=== PATIENT | male | born 1950 | race Caucasian/White ===

== ENCOUNTER 2017-07-29 09:44 | Observation (INO) | payer BC, OTHER ==
[~2017-07-29] VITALS: Ht 182.9 cm; Wt 89.0 kg
[~2017-07-29 09:44] MED LIST: ASPI81TA21 PO; CHOL100027 PO; FAMO-103 PO; FINA5TAB4 PO; L-ME1CAP3 PO; LISI-729 PO; ROPI0.5T15 PO; SIMV20TA5 PO; TRAM-10 PO; cyclobenzaprine PO
[2017-07-29] MEDS ORDERED: LIDOCAINE/EPINEPHRINE 1% 20 ML VIAL INFIL ONE (10:30)
--- NOTE | 2017-07-29 10:34 | DIAGNOSTIC IMAGING REPORT ---
CHEST ONE VIEW PORTABLE CLINICAL HISTORY: fall trauma COMPARISON STUDY: 05/15/2012 FINDINGS: The bones soft tissues and hemidiaphragms are normal. The cardiomediastinal silhouette is normal. The lungs are clear. The pulmonary vasculature is normal. IMPRESSION: Negative chest. The above report was generated using voice recognition software. It may contain grammatical, syntax or spelling errors. Electronically signed by: Zachary Eli M.D. 07/29/2017 10:33 AM Dictated Date/Time: 07/29/2017 10:33 AM
[2017-07-29 11:45] LABS: BASO % 0.4 %; BASO ABS # 0.05 K/uL (0-0.2); EOS % 0.6 %; EOS ABS # 0.08 K/uL (0-0.5); HEMATOCRIT 43.2 % (42-52); HEMOGLOBIN 15.1 g/dL (14.0-18.0); IG# 0.05 K/uL (0.00-0.02); LYMPH % 12.6 %; LYMPH ABS # 1.59 K/uL (1.2-3.4); MEAN CELL VOLUME 86.2 fL (80-100); MEAN CORPUSCULAR HEMOGLOBIN 30.1 pg (25-34); MEAN PLATELET VOLUME 10.6 fL (7.4-10.4); MONO % 6.6 %; MONO ABS # 0.84 K/uL (0.11-0.59); NEUT % 79.4 %; NEUT ABS # 10.03 K/uL (1.4-6.5); PLATELET COUNT 249 K/uL (130-400); RED CELL DISTRIBUTION WIDTH CV 13.2 % (11.5-14.5); RED CELL DISTRIBUTION WIDTH SD 41.5 fL (36.4-46.3); WHITE BLOOD COUNT 12.64 K/uL (4.8-10.8)
--- NOTE | 2017-07-29 11:45 | DIAGNOSTIC IMAGING REPORT ---
CERVICAL SPINE W/O CT DOSE: HISTORY: Trauma fall, head injury TECHNIQUE: Multiaxial CT images of the cervical spine were performed and reformatted in the sagittal and coronal plane without the use of contrast. A dose lowering technique was utilized adhering to the principles of ALARA. COMPARISON: None. FINDINGS: Findings consistent with fusion from C3 through C7. There has been a corpectomy at C3-C4 level. No evidence for a posttraumatic abnormality. No evidence for subluxation. Posterior elements appear intact. Prevertebral soft tissues are unremarkable. IMPRESSION: No fractures within the cervical spine. Degenerative and postoperative changes as noted The above report was generated using voice recognition software. It may contain grammatical, syntax or spelling errors. Electronically signed by: Zachary Eli M.D. 07/29/2017 11:44 AM Dictated Date/Time: 07/29/2017 11:42 AM
--- NOTE | 2017-07-29 11:46 | DIAGNOSTIC IMAGING REPORT ---
CT HEAD WITHOUT CONTRAST (CT) CLINICAL HISTORY: Head pain status post head trauma COMPARISON STUDY: No previous studies for comparison. TECHNIQUE: Axial CT of the brain is performed from the vertex to the skull base. IV contrast was not administered for this examination. A dose lowering technique was utilized adhering to the principles of ALARA. CT DOSE: 1163.49 mGy.cm FINDINGS: No intra or extra-axial mass lesions are visualized. There is no CT evidence of acute cortical infarction. There is no evidence of midline shift. There is no acute hemorrhage. No calvarial fractures are visualized. There are patchy white matter hypodensities likely on a small vessel basis. There is no evidence of pathologic ventricular dilatation. There is no evidence of acute sinusitis IMPRESSION: No acute intracranial findings Electronically signed by: Gallo Colon M.D. 07/29/2017 11:44 AM Dictated Date/Time: 07/29/2017 11:44 AM
[2017-07-29] MEDS ORDERED: MoRPHine SULFATE 10 MG/ML CARP/VIAL IV STA (11:51)
[2017-07-29 12:17] LABS: ALBUMIN 3.9 gm/dl (3.4-5.0); CALCIUM 9.5 mg/dl (8.5-10.1); CREATININE 0.97 mg/dl (0.60-1.40); TOTAL PROTEIN 7.7 gm/dl (6.4-8.2)
[2017-07-29] MEDS ORDERED: BACITRACIN OINT 15 GM TUBE ONE (12:50)
[2017-07-29] MEDS ORDERED: SODIUM CHLORIDE 0.9% 1000ML 1,000 ML IV STA (13:21)
[2017-07-29] MEDS ORDERED: HYDROCODONE/ACETAMIN 5/325MG TAB PO STA (14:11)
[2017-07-29] MEDS ORDERED: CEFTRIAXONE SOD INJ 1 GM ADDVIAL IV STA (14:57)
--- NOTE | 2017-07-29 15:05 | EMERGENCY ROOM VISIT NOTE ---
ED Visit Note First contact with patient: 10:02 I have personally evaluated this patient examined her and reviewed the pertinent labs and data. I have discussed the case with Gilma Lopez, the physician observation assistant and agree with the plan. Please refer to the PA note. This patient comes in after suffering a mechanical fall. He does have diabetic neuropathy. He did hit his head we did a CAT scan of his head neck was unremarkable. he has several lacerations on his extremities and the largest on his right arm. These have been repaired by Gilma. He will check his tetanus status. There is concern about him being safe at home and we are going to try to get him into [facility]. On my exam, he is resting comfortably and appears to be at his normal neurologic baseline. His daughter is at the bedside and agrees with the plan.
--- NOTE | 2017-07-29 16:56 | EMERGENCY ROOM VISIT NOTE ---
History First contact with patient: 10:02 Chief Complaint: FALL Stated Complaint: LACERATION History of Present Illness The patient is a 67 year old male who presents to the Emergency Room via EMS with complaints of a fall which occurred just prior to arrival. The patient reports that he was showering by himself when he fell, landing onto the toilet, which then broke. He hit his head and sustained lacerations to the right arm and left leg as well as several other abrasions. The patient states that he has frequent falls. He reports a history of diabetes and diabetic neuropathy of both of his legs and states that the legs frequently give out, causing him to fall. He believes this is what happened today. He was slightly confused when he first fell, but then realized what happened. He walked outside because he was unable to call anyone and a neighbor found him sitting outside and called 911. The patient is currently living with his daughter. He is scheduled to move to a new assisted living facility which opens up September 30 of this year. The patient has chronic difficulty with speech due to a previous neck surgery. His daughter states that he is at his baseline. The patient denies chest pain, shortness of breath, headache, abdominal pain, nausea/ vomiting, diarrhea, constipation or urinary symptoms. He denies recent illness or fever/chills. The patient recently moved here and was set up with the local [place] clinic. His daughter believes that his tetanus is up-to-date. Review of Systems A complete 10 point review of systems was reviewed with the patient with pertinent positives and negatives as per history of present illness. All else were negative. Past Medical/Surgical History Medical Problems: (1) Diabetes mellitus (2) Diabetic neuropathy (3) HLD (hyperlipidemia) (4) HTN (hypertension) (5) PAD (peripheral artery disease) Surgical Problems: (1) H/O cervical spine surgery (2) right achilles tendon surgery Social History Smoking Status: Never Smoker Marital Status: single Housing Status: lives with family Occupation Status: disabled Current/Historical Medications Scheduled Ascorbic Acid (Ascorbic Acid), 1,000 MG PO DAILY Aspirin Enteric Coated (Ecotrin Or Generic), 81 MG PO DAILY B-Complex Vitamins (Vitamin B Complex), 1 TAB PO DAILY Calcium Polycarbophil (Calcium Polycarbophil), 1 TAB PO DAILY Celecoxib (CeleBREX), 1 CAP PO DAILY Cholecalciferol (D 5000), 1 CAP PO DAILY Cinnamon (Cinnamon), 1,000 MG PO BID Coenzyme Q10 (Ubidecarenone) (Co Q10), 100 MG PO DAILY Docusate Sodium (Docusate Sodium), 1 CAP PO DAILY Famotidine (Pepcid), 1 TAB PO HS Ferrous Sulfate (Kp Ferrous Sulfate), 1 TAB PO DAILY Fish Oil ([place]-3), 1 CAP PO DAILY Fluticasone Propionate (Nasal) (Flonase Allergy Relief), 2 SPRAYS NA DAILY Gabapentin (Neurontin), 100 MG PO BID Glucosamine Sulfate (Glucosamine), 1,000 MG PO BID Lubiprostone (Amitiza), 1 CAP PO BID Magnesium Oxide (Magnesium Oxide), 1 CAP PO DAILY Melatonin (Melatonin Maximum Strengt), Unknown Dose PO HS Mometasone Furoate (Nasal) (Mometasone Furoate), 1 SPRAY NA DAILY Multivitamin (Multivitamin), 1 TAB PO DAILY Ocuvite Preservision (Ocuvite Preservision), 2 TAB PO DAILY Rosuvastatin Calcium (Crestor), 1 TAB PO HS Sitagliptin Phosphate (Januvia), 100 MG PO DAILY Solifenacin (Vesicare), 5 MG PO DAILY Vitamins W/ Lipotropics (Lipoflavonoid), 1 TAB PO DAILY [tumeric], 500 MG PO DAILY Physical Exam Vital Signs Date Time Temp Pulse Resp B/P (MAP) Pulse Ox O2 Delivery O2 Flow Rate FiO2 07/29/17 18:42 82 18 111/64 94 Room Air 07/29/17 16:09 80 18 110/66 97 Room Air 07/29/17 14:26 86 18 128/80 98 Room Air 07/29/17 13:18 89 18 127/89 99 Room Air 07/29/17 12:58 93 18 123/80 100 Room Air 07/29/17 09:55 36.3 90 18 130/87 100 Room Air Pain Rating (0-10): 8.0 Physical Exam VITALS: Vitals are noted on the nurse's note and reviewed by myself. Vital signs stable. GENERAL: This is a 67-year-old male, in no acute distress, well-developed well- nourished. SKIN: There is an 8 cm curved laceration to the lateral aspect of the right upper arm, proximal to the elbow. The wound is gaping with subcutaneous tissue exposed. There is mild active bleeding. There is a 7 cm curved laceration to the left lateral aspect of the calf, mild active bleeding. No foreign body seen in either wound. There is an abrasion to the left fourth digit. It appears that the superficial layer of skin has avulsed from the wound. There is no active bleeding. There are additional abrasions to the left first MCP and the right anterior ankle. HEAD: Normocephalic atraumatic. EARS: External auditory canals clear, tympanic membranes pearly dee without erythema or effusion bilaterally. No hemotympanum. EYES: Pupils equal round and reactive to light and accommodation. Extraocular movements intact. MOUTH: Mucous membranes slightly dry. NECK: Supple without nuchal rigidity. Cervical spine is nontender. HEART: Regular rate and rhythm without murmurs gallops or rubs. LUNGS: Clear to auscultation bilaterally without wheezes, rales or rhonchi. ABDOMEN: Positive bowel sounds x 4. Soft, nontender to palpation. MUSCULOSKELETAL: Strength 5/5 throughout. NEURO: Patient was alert and oriented to person place and time. Speech is slow , but answers all questions appropriately. No focal neurological deficits. Medical Decision & Procedures ER Provider Diagnostic Interpretation: CT HEAD WITHOUT CONTRAST (CT) FINDINGS: No intra or extra-axial mass lesions are visualized. There is no CT evidence of acute cortical infarction. There is no evidence of midline shift. There is no acute hemorrhage. No calvarial fractures are visualized. There are patchy white matter hypodensities likely on a small vessel basis. There is no evidence of pathologic ventricular dilatation. There is no evidence of acute sinusitis IMPRESSION: No acute intracranial findings CERVICAL SPINE W/O FINDINGS: Findings consistent with fusion from C3 through C7. There has been a corpectomy at C3-C4 level. No evidence for a posttraumatic abnormality. No evidence for subluxation. Posterior elements appear intact. Prevertebral soft tissues are unremarkable. IMPRESSION: No fractures within the cervical spine. Degenerative and postoperative changes as noted CHEST ONE VIEW PORTABLE FINDINGS: The bones soft tissues and hemidiaphragms are normal. The cardiomediastinal silhouette is normal. The lungs are clear. The pulmonary vasculature is normal. IMPRESSION: Negative chest. Laboratory Results Test 07/29/17 11:20 07/29/17 14:38 Immature Granulocyte % (Auto) 0.4 % White Blood Count 12.64 K/uL (4.8-10.8) Red Blood Count 5.01 M/uL (4.7-6.1) Hemoglobin 15.1 g/dL (14.0-18.0) Hematocrit 43.2 % (42-52) Mean Corpuscular Volume 86.2 fL (80-100) Mean Corpuscular Hemoglobin 30.1 pg (25-34) Mean Corpuscular Hemoglobin Concent 35.0 g/dl (32-36) Platelet Count 249 K/uL (130-400) Mean Platelet Volume 10.6 fL (7.4-10.4) Neutrophils (%) (Auto) 79.4 % Lymphocytes (%) (Auto) 12.6 % Monocytes (%) (Auto) 6.6 % Eosinophils (%) (Auto) 0.6 % Basophils (%) (Auto) 0.4 % Neutrophils # (Auto) 10.03 K/uL (1.4-6.5) Lymphocytes # (Auto) 1.59 K/uL (1.2-3.4) Monocytes # (Auto) 0.84 K/uL (0.11-0.59) Eosinophils # (Auto) 0.08 K/uL (0-0.5) Basophils # (Auto) 0.05 K/uL (0-0.2) Immature Granulocyte # (Auto) 0.05 K/uL (0.00-0.02) Total Bilirubin 0.7 mg/dl (0.2-1) Aspartate Amino Transf (AST/SGOT) U/L (15-37) Alanine Aminotransferase (ALT/SGPT) 34 U/L (12-78) Alkaline Phosphatase 86 U/L (45-117) Total Protein 7.7 gm/dl (6.4-8.2) Albumin 3.9 gm/dl (3.4-5.0) Globulin 3.8 gm/dl (2.5-4.0) Albumin/Globulin Ratio 1.0 (0.9-2) Urine Color DK YELLOW Urine Appearance CLEAR (CLEAR) Urine pH 5.5 (4.5-7.5) Urine Specific [place] 1.023 (1.000-1.030) Urine Protein TRACE (NEG) Urine Glucose (UA) NEG (NEG) Urine Ketones TRACE (NEG) Urine Occult Blood NEG (NEG) Urine Nitrite NEG (NEG) Urine Bilirubin NEG (NEG) Urine Urobilinogen NEG (NEG) Urine Leukocyte Esterase NEG (NEG) Urine WBC (Auto) 1-5 /hpf (0-5) Urine RBC (Auto) 0-4 /hpf (0-4) Urine Hyaline Casts (Auto) 10-30 /lpf (0-5) Urine Epithelial Cells (Auto) >30 /lpf (0-5) Urine Bacteria (Auto) NEG (NEG) Urine Pathogenic Casts 0-3 GRANULAR CASTS /lpf (0) Urine Mucus PRESENT (NONE PRSENT) Medications Administered Medications (Trade) Dose Ordered Sig/Peter Route Start Time Stop Time Status Last Admin Dose Admin Morphine Sulfate (MoRPHine SULFATE INJ) 6 mg NOW STAT IV 07/29/17 11:51 07/29/17 11:52 DC 07/29/17 11:57 6 MG Bacitracin (Bacitracin Oint) 45 appln STK-MED ONCE .ROUTE 07/29/17 12:50 07/29/17 12:51 DC 07/29/17 12:50 45 APPLN Sodium Chloride 1,000 ml @ 999 mls/hr Q1H1M STAT IV 07/29/17 13:21 07/29/17 14:21 DC 07/29/17 13:21 999 MLS/HR Acetaminophen/ Hydrocodone Bitart ([place] 5/325 Tab) 1 tab NOW STAT PO 07/29/17 14:11 07/29/17 14:14 DC 07/29/17 14:27 1 TAB Ceftriaxone Sodium (Rocephin Inj) 1 gm NOW STAT IV 07/29/17 14:57 07/29/17 14:59 DC 07/29/17 15:38 1 GM Acetaminophen/ Hydrocodone Bitart ([place] 7.5/325 Tab) 1 tab Q6H PRN PO 07/29/17 19:30 08/12/17 19:29 07/30/17 11:50 1 TAB Acetaminophen/ Hydrocodone Bitart ([place] 7.5/325 Tab) 1 tab STK-MED ONCE .ROUTE 07/29/17 19:34 07/29/17 19:35 DC 07/29/17 19:36 1 TAB Procedure RIGHT ARM LACERATION: Verbal consent was obtained to perform the procedure. Using sterile technique the wound was cleaned with Betadine. The area was sterilely draped. 8 ml of 1 % buffered lidocaine with epinephrine was used to anesthetize the right arm laceration. Once the patient was anesthetized, the wound was copiously irrigated under pressure with sterile saline. The wound was explored and there were no deep structures injured such as tendons, bone, or significant blood vessels. The laceration was repaired using 11 simple interrupted 4-0 nylon sutures with the wound edges being well approximated. The patient tolerated the procedure well. Hemostasis was achieved. The area was cleaned with sterile saline and dressed with bacitracin ointment and bandage. An [place] wrap was applied over top. LEFT LEG LACERATION: Verbal consent was obtained to perform the procedure. Using sterile technique the wound was cleaned with Betadine. The area was sterilely draped. 7 ml of 1 % buffered lidocaine with epinephrine was used to anesthetize the left leg laceration. Once the patient was anesthetized, the wound was copiously irrigated under pressure with sterile saline. The wound was explored and there were no deep structures injured such as tendons, bone, or significant blood vessels. The laceration was repaired using 9 simple interrupted 4-0 nylon sutures with the wound edges being well approximated. The patient tolerated the procedure well. Hemostasis was achieved. The area was cleaned with sterile saline and dressed with bacitracin ointment and bandage. ECG Per My Interpretation Indication: weakness Rate (beats per minute): 74 Rhythm: normal sinus Findings: other (low voltage QRS) Change: no significant change Medical Decision Differential diagnosis includes intracranial hemorrhage, fracture, laceration, contusions, deconditioning, orthostatic hypotension, electrolyte abnormality, infection, among others. The patient is a 67-year-old male who presents today complaining of a fall. Labs revealed mild leukocytosis, no concerning anemia or significant electrolyte abnormality. Urinalysis was not suggestive of infection. CT of the head and neck were unremarkable. Chest x-ray was unremarkable. Patient sustained large lacerations to the right arm and left leg. These were repaired as noted in the procedure section. He did have a very lengthy conversation with the patient and his daughter. It appears that he is very deconditioned. He does not get around well due to chronic neuropathy and has difficulty with speech after a neck injury a few years ago. I am concerned that if the patient returns back with his daughter, he will sustain more falls and possibly sustain a more significant injury. I feel the patient will be a very good [facility] other acute rehab facility. The patient was agreeable to this. I discussed this with case management. The [facility] business representative did evaluate the patient in the ED. Several attempts were made to perform a peer to peer with the patient's insurance to obtain approval, however these attempts were unsuccessful. The patient will be admitted to the [facility] service pending this referral. The patient was independently evaluated by Dr. Sidhu, ED attending physician, who agreed with my assessment and treatment plan. Head Trauma GCS Score: 15 Medication Reconcilliation Current Medication List: was personally reviewed by me Blood Pressure Screening Patient's blood pressure: Normal blood pressure Impression Primary Impression: Fall Additional Impressions: Ambulatory dysfunction Multiple lacerations Departure Information Dispostion Home / Self-Care Condition GOOD [facility] Patient Instructions My [facility] Additional Instructions You have received 11 sutures on your arm and 9 sutures on your leg. These sutures are NOT dissolvable and WILL need to be removed by a health care provider in 12/14 days. You can return to the Emergency Department or contact your Primary Care Provider to have the sutures removed. You were prescribed Keflex to be taken 500 mg 4 times daily for total of 7 days. This is an antibiotic. All antibiotics have the potential to cause diarrhea. Stop this medication and contact a medical provider if you were to develop any significant adverse side effects including: wheezing, shortness of breath, passing out, vomiting, or a diffuse rash. Always take antibiotics as directed and COMPLETE the ENTIRE course regardless of the improvement of your symptoms. Proper wound care is essential for adequate wound healing and infection prevention. You can shower and clean the wound with soap and water. Do not scour over the wound, pat dry with a towel. Do not submerse the wound (i.e. bathe or dish wash) until the sutures have been removed. You can use an antibiotic ointment with a dressing over the wound for the next 3-4 days. After this time you may leave the wound dry and open to the air. If crust develops over the wound you can use a Q-tip to apply a 1:1 peroxide:water solution to clean the wound. Look for signs of infection of the wound including: increased pain, swelling, foul discharge, streaking, or increased temperature. If any of these are noticed you should return to the Emergency Department for further assessment and treatment. As with any laceration you may have received nerve damage to the surrounding tissues. This damage may or may not be permanent. You should keep the area covered with sunscreen for the first 6 months to 1 year when at risk for exposure to help minimize scarring. You can also use scar reducing creams or Vitamin E oil to help minimize scarring. For pain control, you can use the following [id number] medicines (if >12 yo): - Regular strength (325mg/tab) Tylenol (acetaminophen) 2 tabs every 4-6 hours as needed. Do not exceed 12 tablets in a 24 hour period. Avoid taking more than 4 grams (4000 mg) of Tylenol per day. This includes any other sources of acetaminophen you may take on a regular basis. - Regular strength (200 mg/tab) Advil (ibuprofen) 1-2 tabs every 4-6 hours as needed. Do not exceed a dose of 3200 mg per day. As with any visit to the emergency department, you should follow-up with your primary care provider for recheck. Return to the emergency department if your symptoms worsen despite treatment course outlined above. Problem Qualifiers Primary Impression: Fall Encounter type: initial encounter Qualified Codes: W19.XXXA - Unspecified fall, initial encounter
[2017-07-29] MEDS ORDERED: HYDROCODONE/ACETAMINOPHEN 7.5/325MG TAB ONE (19:34)
[2017-07-29] MEDS ORDERED: ONDANSETRON INJ 2 MG/ML 2 ML VIAL IV PRN (20:15)
[2017-07-29] MEDS ORDERED: ACETAMINOPHEN 325 MG TAB PO PRN (20:15)
[2017-07-29] MEDS ORDERED: OMEG10007 PO (20:26)
[2017-07-29] MEDS ORDERED: tumeric PO (20:26)
[2017-07-29] MEDS ORDERED: FERR1TAB13 PO (20:26)
[2017-07-29] MEDS ORDERED: SITA100T3 PO (20:26)
[2017-07-29] MEDS ORDERED: ASCO100061 PO (20:26)
[2017-07-29] MEDS ORDERED: VSC/5 PO (20:26)
[2017-07-29] MEDS ORDERED: CLB/200 PO (20:26)
[2017-07-29] MEDS ORDERED: AMT24 PO (20:26)
[2017-07-29] MEDS ORDERED: MOME6000 (20:26)
[2017-07-29] MEDS ORDERED: MULT-506 PO (20:26)
[2017-07-29] MEDS ORDERED: GABA-112 PO (20:26)
[2017-07-29] MEDS ORDERED: DOCU100C31 PO (20:26)
[2017-07-29] MEDS ORDERED: GLUC10007 PO (20:26)
[2017-07-29] MEDS ORDERED: ROSU5TAB PO (20:26)
[2017-07-29] MEDS ORDERED: MELATAB2 PO (20:26)
[2017-07-29] MEDS ORDERED: MULT-190 PO (20:26)
[2017-07-29] MEDS ORDERED: [UNRECOGNIZED DRUG - CODE] PO (20:26)
[2017-07-29] MEDS ORDERED: COEN1CAP28 PO (20:26)
[2017-07-29] MEDS ORDERED: VITATAB11 PO (20:26)
[2017-07-29] MEDS ORDERED: FAMO40TA6 PO (20:26)
[2017-07-29] MEDS ORDERED: FLUT0.15 (20:26)
[2017-07-29] MEDS ORDERED: B-COTAB18 PO (20:26)
[2017-07-29] MEDS ORDERED: MAGN400C2 PO (20:26)
[2017-07-29] MEDS ORDERED: CHOLCAP10 PO (20:26)
[2017-07-29] MEDS ORDERED: CINN1CAP2 PO (20:26)
--- NOTE | 2017-07-29 20:43 | History and Physical ---
History & Physical Date & Time of Service: Jul 29, 2017 ~ 18:00 Chief Complaint: Fall, multiple lacerations Primary Care Physician: Oralia Doll Outpatient History of Present Illness Source: patient, family 67-year-old male who presents to the ER after suffering a fall with multiple lacerations at home. Patient recently moved in with his daughter due to increasing weakness. Patient reports a long-standing history of diabetic neuropathy. He also had surgery on his right Achilles tendon approximately 2 years ago which he reports he did not receive therapy for and has subsequently had difficulty ambulating. He uses a wheelchair most the time. Patient also has a chronically weak and hoarse voice from a cervical spine fracture a few years ago. Patient reports that today while he was in the shower he lost his balance and fell out of the shower onto the toilet breaking it in suffered multiple lacerations to the right arm and right leg. Patient did not know how to use a cell phone call for help. He went outside and neighbors found him and called for help. Patient does not believe that he passed out. He denies lightheadedness and dizziness. No chest pain or shortness of breath. Patient denies any other recent illnesses, fever, or chills. No abdominal pain, nausea , vomiting, or diarrhea. He denies any urinary symptoms. In the ED patient underwent laceration repair of his right arm and right leg. Head CT and cervical spine CT are negative for acute findings. Chest x-ray is negative for acute findings. Vital signs remained stable. Patient received a dose of prophylactic Rocephin for his lacerations. He was also given IVF and morphine for pain control. Past Medical/Surgical History Medical Problems: (1) Diabetes mellitus Status: Chronic (2) Diabetic neuropathy Status: Chronic (3) HLD (hyperlipidemia) Status: Chronic (4) HTN (hypertension) Status: Chronic (5) PAD (peripheral artery disease) Status: Chronic Surgical Problems: (1) H/O cervical spine surgery Status: Chronic (2) right achilles tendon surgery Status: Chronic Family History Negative for premature CAD Social History Smoking Status: Never Smoker Alcohol Use: none Housing status: lives with family Allergies Coded Allergies: Sulfa Drugs (Unverified Allergy, Unknown, RASH, ITCHINESS, 07/29/17) Home Medications Scheduled Ascorbic Acid (Ascorbic Acid), 1,000 MG PO DAILY Aspirin Enteric Coated (Ecotrin Or Generic), 81 MG PO DAILY B-Complex Vitamins (Vitamin B Complex), 1 TAB PO DAILY Calcium Polycarbophil (Calcium Polycarbophil), 1 TAB PO DAILY Celecoxib (CeleBREX), 1 CAP PO DAILY Cholecalciferol (D 5000), 1 CAP PO DAILY Cinnamon (Cinnamon), 1,000 MG PO BID Coenzyme Q10 (Ubidecarenone) (Co Q10), 100 MG PO DAILY Docusate Sodium (Docusate Sodium), 1 CAP PO DAILY Famotidine (Pepcid), 1 TAB PO HS Ferrous Sulfate (Kp Ferrous Sulfate), 1 TAB PO DAILY Fish Oil (Orange-3), 1 CAP PO DAILY Fluticasone Propionate (Nasal) (Flonase Allergy Relief), 2 SPRAYS NA DAILY Gabapentin (Neurontin), 100 MG PO BID Glucosamine Sulfate (Glucosamine), 1,000 MG PO BID Lubiprostone (Amitiza), 1 CAP PO BID Magnesium Oxide (Magnesium Oxide), 1 CAP PO DAILY Melatonin (Melatonin Maximum Strengt), Unknown Dose PO HS Mometasone Furoate (Nasal) (Mometasone Furoate), 1 SPRAY NA DAILY Multivitamin (Multivitamin), 1 TAB PO DAILY Ocuvite Preservision (Ocuvite Preservision), 2 TAB PO DAILY Rosuvastatin Calcium (Crestor), 1 TAB PO HS Sitagliptin Phosphate (Januvia), 100 MG PO DAILY Solifenacin (Vesicare), 5 MG PO DAILY Vitamins W/ Lipotropics (Lipoflavonoid), 1 TAB PO DAILY [tumeric], 500 MG PO DAILY Review of Systems ROS per HPI, all other systems reviewed and negative Physical Exam Vital Signs Date Time Temp Pulse Resp B/P (MAP) Pulse Ox O2 Delivery O2 Flow Rate FiO2 07/29/17 20:24 83 18 111/64 95 Room Air 07/29/17 18:42 82 18 111/64 94 Room Air 07/29/17 16:09 80 18 110/66 97 Room Air 07/29/17 14:26 86 18 128/80 98 Room Air 07/29/17 13:18 89 18 127/89 99 Room Air 07/29/17 12:58 93 18 123/80 100 Room Air 07/29/17 09:55 36.3 90 18 130/87 100 Room Air General Appearance: WD/WN, no apparent distress Head: normocephalic, atraumatic Eyes: normal inspection, EOMI, sclerae normal ENT: hearing grossly normal, + muffled/hoarse voice (Weak voice, chronic per patient), + pertinent finding (Mucous membranes moist) Neck: supple, no JVD, trachea midline Respiratory/Chest: lungs clear, normal breath sounds, no respiratory distress Cardiovascular: regular rate, rhythm, no edema, normal peripheral pulses Abdomen/GI: normal bowel sounds, non tender, soft, no organomegaly Extremities/Musculoskelatal: no calf tenderness, normal capillary refill, + swelling (Noted over right elbow) Neurologic/Psych: no motor/sensory deficits, alert, normal mood/affect, oriented x 3 Skin: warm/dry, + pertinent finding (Dressings intact to right upper extremity , right lower extremity, and left lower extremity; patient underwent laceration repair with sutures to the right upper arm and right leg) Diagnostics Laboratory Results Results Past 24 Hours Test 07/29/17 11:20 07/29/17 13:25 07/29/17 14:38 Range/Units White Blood Count 12.64 4.8-10.8 K/uL Red Blood Count 5.01 4.7-6.1 M/uL Hemoglobin 15.1 14.0-18.0 g/dL Hematocrit 43.2 42-52 % Mean Corpuscular Volume 86.2 80-100 fL Mean Corpuscular Hemoglobin 30.1 25-34 pg Mean Corpuscular Hemoglobin Concent 35.0 32-36 g/dl Platelet Count 249 130-400 K/uL Mean Platelet Volume 10.6 7.4-10.4 fL Neutrophils (%) (Auto) 79.4 % Lymphocytes (%) (Auto) 12.6 % Monocytes (%) (Auto) 6.6 % Eosinophils (%) (Auto) 0.6 % Basophils (%) (Auto) 0.4 % Neutrophils # (Auto) 10.03 1.4-6.5 K/uL Lymphocytes # (Auto) 1.59 1.2-3.4 K/uL Monocytes # (Auto) 0.84 0.11-0.59 K/uL Eosinophils # (Auto) 0.08 0-0.5 K/uL Basophils # (Auto) 0.05 0-0.2 K/uL RDW Standard Deviation 41.5 36.4-46.3 fL RDW Coefficient of Variation 13.2 11.5-14.5 % Immature Granulocyte % (Auto) 0.4 % Immature Granulocyte # (Auto) 0.05 0.00-0.02 K/uL Sodium Level 138 136-145 mmol/L Potassium Level 3.5-5.1 mmol/L Chloride Level 105 98-107 mmol/L Carbon Dioxide Level 29 21-32 mmol/L Anion Gap 5.0 3-11 mmol/L Blood Urea Nitrogen 12 7-18 mg/dl Creatinine 0.97 0.60-1.40 mg/dl Est Creatinine Clear Calc Drug Dose 84.6 ml/min Estimated GFR () 93.9 Estimated GFR (Non- 81.0 BUN/Creatinine Ratio 12.4 10-20 Random Glucose 100 70-99 mg/dl Calcium Level 9.5 8.5-10.1 mg/dl Total Bilirubin 0.7 0.2-1 mg/dl Aspartate Amino Transf (AST/SGOT) 15-37 U/L Alanine Aminotransferase (ALT/SGPT) 34 12-78 U/L Alkaline Phosphatase 86 45-117 U/L Total Protein 7.7 6.4-8.2 gm/dl Albumin 3.9 3.4-5.0 gm/dl Globulin 3.8 2.5-4.0 gm/dl Albumin/Globulin Ratio 1.0 0.9-2 Bedside Glucose 107 70-99 mg/dl Urine Color DK YELLOW Urine Appearance CLEAR CLEAR Urine pH 5.5 4.5-7.5 Urine Specific [place] 1.023 1.000-1.030 Urine Protein TRACE NEG Urine Glucose (UA) NEG NEG Urine Ketones TRACE NEG Urine Occult Blood NEG NEG Urine Nitrite NEG NEG Urine Bilirubin NEG NEG Urine Urobilinogen NEG NEG Urine Leukocyte Esterase NEG NEG Urine WBC (Auto) 1-5 0-5 /hpf Urine RBC (Auto) 0-4 0-4 /hpf Urine Hyaline Casts (Auto) 10-30 0-5 /lpf Urine Epithelial Cells (Auto) >30 0-5 /lpf Urine Bacteria (Auto) NEG NEG Urine Pathogenic Casts 0-3 GRANULAR CASTS 0 /lpf Urine Mucus PRESENT NONE PRSENT Diagnostic Radiology HEAD CT IMPRESSION: No acute intracranial findings CXR IMPRESSION: Negative chest. CERVICAL SPINE CT IMPRESSION: No fractures within the cervical spine. Degenerative and postoperative changes as noted Impression Assessment and Plan FALL DECONDITIONING LACERATIONS -Admit patient to [facility] -Patient presenting from home where he suffered a fall out of the shower with several lacerations -Patient has been becoming increasingly weak for the past couple of years, recently moved in with his daughter -Also history of diabetic neuropathy, which has made ambulating difficult -Patient underwent suture repair of the right upper arm and right leg in the ED , will give prophylactic cephalexin as per suture repair recommendations which are noted in ED note -Attempted to get patient placed from the ED however authorization was unable to be obtained -PT/OT DIABETES -Will check Hgb A1c -Glucose 100 on labs -Continue Januvia DYSLIPIDEMIA -continue statin DVT PROPHYLAXIS - SCDs due to multiple lacerations DISPOSITION -The patient will be placed as observation status for now until further work up is complete. Attending Note: Patient is a 67 yr male with PMH of DM II, Chronic Neuropathy, Multiple falls, ambulatory dysfunction, HTN, chronic hoarseness of voice 2/2 neck surgery and other problems presents with history of fall resulting in lacerations and multiple wounds. Patient had multiple falls lately and his daughter is planning to place him in an assisted living facility in September. Patient states he fell secondary to balance issues 2/2/ neuropathy. Patient was unsure if he lost consciousness. States he was initially dizzy which resolved. Denies chest pain, SOB, abd pain, dysuria, diarrhea. No other relevant history. Physical Exam: Vitals signs as noted above General Appearance:Moderately built and nourished, no apparent distress Head: normocephalic, Atraumatic Eyes: normal inspection, EOMI, PERRL Neck: supple, Trachea midline Respiratory/Chest: Normal breath sounds, CTA, No accessory muscle use Cardiovascular: S1, S2, No murmur Abdomen/GI:Soft, Non tender, Bowel sounds present Extremities/Musculoskelatal:normal inspection, no edema Neurologic/Psych:AAOX3, grossly no focal neurological deficits,+ Chronic hoarseness Skin:normal color,warm, Multiple wounds on extremities, RUE and LLE S/P sutures in dressing Assessment and Plan: Ambulatory dysfunction Fall Likely 2/2 neuropathy Multiple wounds S/P sutures CT head:No acute intracranial findings Continue Cephalexin empirically Wound Care Fall precautions PT/OT Needs Placement Chronic Aspiration Aspiration precautions Speech Eval DM II: Check A1C ISS I personally reviewed the record. Patient is interviewed and examined at bedside. Patient's care is coordinated with Holly Spangler [facility]. Please refer to the documentation above for details of patient's presentation and for discussion of other issues. Resuscitation Status VTE Prophylaxis Will order VTE Prophylaxis: Yes
--- NOTE | 2017-07-29 20:57 | DIAGNOSTIC IMAGING REPORT ---
RIGHT ELBOW 3 VIEWS CLINICAL HISTORY: Fall with right elbow pain. FINDINGS: 3 views of the right elbow are obtained. No prior studies are available for comparison at the time of dictation. The skeletal structures are osteopenic. There is no radiographic evidence of right elbow fracture. No joint effusion is identified. A large enthesophyte is seen at the triceps insertion. Enthesophytes are also arising from the humeral epicondyles. Dorsal soft tissue edema is noted. IMPRESSION: 1. Dorsal soft tissue edema with no radiographic evidence of right elbow fracture. 2. Degenerative change as above. Electronically signed by: Ulysses Fontaine M.D. 07/29/2017 8:55 PM Dictated Date/Time: 07/29/2017 8:54 PM
[2017-07-29] MEDS ORDERED: IV FLUIDS COMPLETED PRN (21:15)
[2017-07-29 21:30] VITALS: BP 125/74; PULSE 76; TEMP 36.3; O2SAT 96; BMI 26.7
[2017-07-29] MEDS ORDERED: GLUCOSE 40% GEL 15 GM TUBE PO PRN (21:30)
[2017-07-29] MEDS ORDERED: GLUCOSE 10 TABS/TUBE PO PRN (21:30)
[2017-07-29] MEDS ORDERED: GLUCAGON FOR INJ 1 MG VIAL SQ PRN (21:30)
[2017-07-29] MEDS ORDERED: DEXTROSE 50% 50 ML SYR IV PRN (21:30)
[2017-07-29] MEDS: HYDROCODONE/ACETAMINOPHEN 7.5/325MG TAB PO PRN (23:39)
[2017-07-29] MEDS: FAMOTIDINE 20 MG TAB PO SCH (23:41)
[2017-07-29] MEDS: GLUCOSAMINE SULFATE 500 MG CAP PO SCH (23:42)
[2017-07-29] MEDS: GABAPENTIN 100 MG CAP PO SCH (23:42)
[2017-07-29] MEDS: CEPHALEXIN MONOHYDRATE 500 MG CAP PO SCH (23:42)
[2017-07-29] MEDS: ROSUVASTATIN CALCIUM 10 MG TAB PO SCH (23:43)
[2017-07-30 00:11] VITALS: BP 109/65; PULSE 75; TEMP 36.6; O2SAT 96
[2017-07-30] MEDS: LUBIPROSTONE 8 MCG CAP PO SCH ×3 (00:14→20:47)
[2017-07-30] MEDS: HYDROCODONE/ACETAMINOPHEN 7.5/325MG TAB PO PRN ×3 (05:34→18:02)
[2017-07-30 06:10] LABS: HEMATOCRIT 34.4 % (42-52); HEMOGLOBIN 11.5 g/dL (14.0-18.0); MEAN CELL VOLUME 86.9 fL (80-100); MEAN CORPUSCULAR HGB CONC 33.4 g/dl (32-36); MEAN PLATELET VOLUME 10.5 fL (7.4-10.4); PLATELET COUNT 230 K/uL (130-400); RED CELL DISTRIBUTION WIDTH SD 41.2 fL (36.4-46.3); WHITE BLOOD COUNT 10.05 K/uL (4.8-10.8)
[2017-07-30 06:33] LABS: CALCIUM 8.3 mg/dl (8.5-10.1); CREATININE 1.02 mg/dl (0.60-1.40); POTASSIUM 3.8 mmol/L (3.5-5.1)
[2017-07-30 07:31] LABS: HEMOGLOBIN A1C 5.4 % (4.5-5.6)
[2017-07-30 07:59] VITALS: BP 123/75; PULSE 77; TEMP 36.7; O2SAT 97
[2017-07-30] MEDS ORDERED: NON-FORMULARY MEDICATION (Coenzyme Q10 (Ubidecarenone) (Co Q10) 100 MG) PO SCH (08:00)
[2017-07-30] MEDS ORDERED: NON-FORMULARY MEDICATION (Vitamins W/ Lipotropics (Lipoflavonoid) 1 TAB) PO SCH (08:00)
[2017-07-30] MEDS: CEROVITE ADV FORMULA TAB PO SCH (08:48)
[2017-07-30] MEDS: VITAMIN B COMPLEX TAB PO SCH (08:49)
[2017-07-30] MEDS: OMEGA-3 (PURIFIED FISH OIL) 1 GM CAP PO SCH (08:49)
[2017-07-30] MEDS: MULTIVITAMIN TAB PO SCH (08:49)
[2017-07-30] MEDS: CHOLECALCIFEROL 1000 INTER.UNIT TAB PO SCH (08:49)
[2017-07-30] MEDS: CALCIUM POLYCARBOPHIL 1 TAB PO SCH (08:50)
[2017-07-30] MEDS: FERROUS SULFATE 325 MG TAB PO SCH (08:50)
[2017-07-30] MEDS: MAGNESIUM OXIDE 400 MG TAB PO SCH (08:51)
[2017-07-30] MEDS: DOCUSATE SODIUM 100 MG CAP PO SCH (08:54)
[2017-07-30] MEDS: GABAPENTIN 100 MG CAP PO SCH ×2 (08:54→20:47)
[2017-07-30] MEDS: ASCORBIC ACID 500 MG TAB PO SCH (08:54)
[2017-07-30] MEDS: SITAGLIPTIN 100 MG TAB PO SCH (08:54)
[2017-07-30] MEDS: CeleBREX 200 MG CAP PO SCH (08:54)
[2017-07-30] MEDS: CEPHALEXIN MONOHYDRATE 500 MG CAP PO SCH ×4 (08:54→20:44)
[2017-07-30] MEDS: ASPIRIN 81 MG ECTAB PO SCH (08:54)
[2017-07-30] MEDS: GLUCOSAMINE SULFATE 500 MG CAP PO SCH ×2 (08:55→20:48)
[2017-07-30] MEDS: INSULIN ASPART 100 UNITS/ML 3 ML PEN SC SCH ×4 (08:56→20:52)
[2017-07-30] MEDS: FLUTICASONE PROPIONATE NA SPR 16 GM BTL SCH (08:58)
[2017-07-30 13:08] VITALS: BP 121/72; PULSE 85; O2SAT 98
[2017-07-30 16:06] VITALS: BP 114/74; PULSE 84; TEMP 36; O2SAT 99
[2017-07-30 16:21] VITALS: BMI 26.6
--- NOTE | 2017-07-30 16:37 | Progress Note ---
Internal Med Progress Note Date of Service: Jul 30, 2017. Provider Documentation: SUBJECTIVE: sitting on the chair comfortably afebrile complains of pain in right elbow, knee and back eating ok denies chest pain or sob no nausea no cough speaking in low voice OBJECTIVE: Vital Signs-as noted below Exam: General-alert and oriented. ENT-Normal hearing Neck-no neck masses Lungs-cta b/l no wheezing no crackles present Heart-S1 and S2 heard regular rate and rhythm no murmurs Abdomen-Soft bowel sounds present non tender no distension Extremities-no edema no erythema dressing in finger, right elbow and b/l feet Neuro-alert and awake moves extremities Lab data as noted below. ASSESSMENT & PLAN: FALL DECONDITIONING LACERATIONS presented from home where he suffered a fall out of the shower with several lacerations recently moved in with his daughter Hx of diabetic neuropathy- ambulatory dysfunction Had suture repair of the right upper arm and right leg in the ED,on prophylactic cephalexin as per suture repair recommendations Was attempted to get patient in rehab from the ED however authorization was unable to be obtained social service for d/c planning rehab vs snf PT/OT DIABETES Hgb A1c 5.4 on Mayuvia will monitor DYSLIPIDEMIA on statin DVT PROPHYLAXIS - SCDs DISPOSITION plan for placement social service for d/c planning pt/ot Vital Signs: Date Time Temp Pulse Resp B/P (MAP) Pulse Ox O2 Delivery O2 Flow Rate FiO2 07/30/17 16:06 36.0 84 18 114/74 (87) 99 Room Air 07/30/17 13:08 85 98 07/30/17 08:30 Room Air 07/30/17 07:59 36.7 77 123/75 (91) 97 Room Air 07/30/17 00:11 36.6 75 20 109/65 (80) 96 Room Air 07/29/17 23:50 Room Air 07/29/17 21:30 36.3 76 20 125/74 96 Room Air 07/29/17 20:24 83 18 111/64 95 Room Air 07/29/17 18:42 82 18 111/64 94 Room Air Lab Results: Results Past 24 Hours Test 07/30/17 05:35 07/30/17 07:50 07/30/17 11:34 Range/Units White Blood Count 10.05 4.8-10.8 K/uL Red Blood Count 3.96 4.7-6.1 M/uL Hemoglobin 11.5 14.0-18.0 g/dL Hematocrit 34.4 42-52 % Mean Corpuscular Volume 86.9 80-100 fL Mean Corpuscular Hemoglobin 29.0 25-34 pg Mean Corpuscular Hemoglobin Concent 33.4 32-36 g/dl RDW Standard Deviation 41.2 36.4-46.3 fL RDW Coefficient of Variation 13.0 11.5-14.5 % Platelet Count 230 130-400 K/uL Mean Platelet Volume 10.5 7.4-10.4 fL Sodium Level 136 136-145 mmol/L Potassium Level 3.8 3.5-5.1 mmol/L Chloride Level 104 98-107 mmol/L Carbon Dioxide Level 28 21-32 mmol/L Anion Gap 5.0 3-11 mmol/L Blood Urea Nitrogen 15 7-18 mg/dl Creatinine 1.02 0.60-1.40 mg/dl Est Creatinine Clear Calc Drug Dose 78.2 ml/min Estimated GFR () 88.4 Estimated GFR (Non- 76.2 BUN/Creatinine Ratio 14.8 10-20 Random Glucose 113 70-99 mg/dl Estimated Average Glucose 108 mg/dl Hemoglobin A1c 5.4 4.5-5.6 % Calcium Level 8.3 8.5-10.1 mg/dl Bedside Glucose 115 129 70-99 mg/dl
[2017-07-30] MEDS: ROSUVASTATIN CALCIUM 10 MG TAB PO SCH (20:44)
[2017-07-30] MEDS: FAMOTIDINE 20 MG TAB PO SCH (20:47)
[2017-07-31] MEDS: HYDROCODONE/ACETAMINOPHEN 7.5/325MG TAB PO PRN ×2 (05:58→11:55)
[2017-07-31 07:11] VITALS: BP 125/74; PULSE 71; TEMP 36.5; O2SAT 95
[2017-07-31] MEDS: DOCUSATE SODIUM 100 MG CAP PO SCH (08:47)
[2017-07-31] MEDS: FLUTICASONE PROPIONATE NA SPR 16 GM BTL SCH (08:48)
[2017-07-31] MEDS: FERROUS SULFATE 325 MG TAB PO SCH (08:49)
[2017-07-31] MEDS: CALCIUM POLYCARBOPHIL 1 TAB PO SCH (08:49)
[2017-07-31] MEDS: OMEGA-3 (PURIFIED FISH OIL) 1 GM CAP PO SCH (08:50)
[2017-07-31] MEDS: MAGNESIUM OXIDE 400 MG TAB PO SCH (08:50)
[2017-07-31] MEDS: MULTIVITAMIN TAB PO SCH (08:50)
[2017-07-31] MEDS: CEROVITE ADV FORMULA TAB PO SCH (08:50)
[2017-07-31] MEDS: CHOLECALCIFEROL 1000 INTER.UNIT TAB PO SCH (08:51)
[2017-07-31] MEDS: VITAMIN B COMPLEX TAB PO SCH (08:51)
[2017-07-31] MEDS: VESICARE 5 MG PO SCH (08:51)
[2017-07-31] MEDS: ASPIRIN 81 MG ECTAB PO SCH (08:52)
[2017-07-31] MEDS: LUBIPROSTONE 8 MCG CAP PO SCH ×2 (08:52→19:45)
[2017-07-31] MEDS: ASCORBIC ACID 500 MG TAB PO SCH (08:53)
[2017-07-31] MEDS: SITAGLIPTIN 100 MG TAB PO SCH (08:53)
[2017-07-31] MEDS: CeleBREX 200 MG CAP PO SCH (08:53)
[2017-07-31] MEDS: GABAPENTIN 100 MG CAP PO SCH ×2 (08:54→19:46)
[2017-07-31] MEDS: CEPHALEXIN MONOHYDRATE 500 MG CAP PO SCH ×4 (08:54→19:45)
[2017-07-31] MEDS: GLUCOSAMINE SULFATE 500 MG CAP PO SCH ×2 (08:55→19:47)
[2017-07-31] MEDS: INSULIN ASPART 100 UNITS/ML 3 ML PEN SC SCH ×4 (08:58→20:17)
[2017-07-31] MEDS: MoRPHine SULFATE 4 MG/ML 1 ML CARP\\VIAL IV PRN ×2 (09:25→13:31)
[2017-07-31 16:00] VITALS: O2SAT 95
[2017-07-31 16:03] VITALS: BP 133/76; PULSE 82; TEMP 36.5; O2SAT 100
--- NOTE | 2017-07-31 17:58 | Progress Note ---
Internal Med Progress Note Date of Service: Jul 31, 2017. Provider Documentation: SUBJECTIVE: sitting on the chair comfortably speaking in low voice says his voice is low since his neck surgery few years back request to consult eating ok had belly pain in am but much improved now no nausea no sob OBJECTIVE: Vital Signs-as noted below Exam: General-alert and oriented. ENT-Normal hearing Neck-no neck masses Lungs-cta b/l no wheezing no crackles present Heart-S1 and S2 heard regular rate and rhythm no murmurs Abdomen-Soft bowel sounds present non tender no distension Extremities-no edema no erythema dressing in finger, right elbow and b/l feet Neuro-alert and awake moves extremities Lab data as noted below. ASSESSMENT & PLAN: 67M PRESENTED WITH FALL AND AWAITING PLACEMENT FALL DECONDITIONING LACERATIONS presented from home where he suffered a fall out of the shower with several lacerations recently moved in with his daughter Hx of diabetic neuropathy- ambulatory dysfunction Had suture repair of the right upper arm and right leg in the ED,on prophylactic cephalexin as per suture repair recommendations Was attempted to get patient in rehab from the ED however authorization was unable to be obtained social service for d/c planning rehab vs snf PT/OT await placement DIABETES Hgb A1c 5.4 on Januvia will monitor DYSLIPIDEMIA on statin. Abdominal pain improving will monitor. Low voice since spine fx few years back likes to see seen by speech and appreciate inputs Anemia? f/u labs DVT PROPHYLAXIS SCDs DISPOSITION plan for placement social service for d/c planning pt/ot Vital Signs: Date Time Temp Pulse Resp B/P (MAP) Pulse Ox O2 Delivery O2 Flow Rate FiO2 07/31/17 16:03 36.5 82 18 133/76 (95) 100 Room Air 07/31/17 16:00 95 Room Air 07/31/17 08:30 Room Air 07/31/17 07:11 36.5 71 20 125/74 (91) 95 Room Air 07/31/17 00:01 Room Air 07/30/17 20:00 Room Air Lab Results: Results Past 24 Hours Test 07/30/17 20:51 07/31/17 07:45 07/31/17 11:35 07/31/17 16:39 Range/Units Bedside Glucose 114 103 104 158 70-99 mg/dl
[2017-07-31] MEDS: FAMOTIDINE 20 MG TAB PO SCH (19:46)
[2017-07-31] MEDS: ROSUVASTATIN CALCIUM 10 MG TAB PO SCH (19:48)
[2017-07-31 20:00] VITALS: O2SAT 95
[2017-08-01] MEDS: HYDROCODONE/ACETAMINOPHEN 7.5/325MG TAB PO PRN ×2 (00:19→19:54)
[2017-08-01 06:05] LABS: BASO % 0.8 %; BASO ABS # 0.06 K/uL (0-0.2); EOS % 2.8 %; HEMATOCRIT 32.8 % (42-52); IG# 0.04 K/uL (0.00-0.02); LYMPH % 21.9 %; LYMPH ABS # 1.56 K/uL (1.2-3.4); MEAN CELL VOLUME 86.3 fL (80-100); MEAN CORPUSCULAR HEMOGLOBIN 28.9 pg (25-34); MEAN CORPUSCULAR HGB CONC 33.5 g/dl (32-36); MEAN PLATELET VOLUME 10.3 fL (7.4-10.4); MONO % 8.4 %; NEUT % 65.5 %; NEUT ABS # 4.66 K/uL (1.4-6.5); PLATELET COUNT 252 K/uL (130-400); RED CELL DISTRIBUTION WIDTH SD 41.1 fL (36.4-46.3); WHITE BLOOD COUNT 7.12 K/uL (4.8-10.8)
[2017-08-01] MEDS: INSULIN ASPART 100 UNITS/ML 3 ML PEN SC SCH ×4 (06:30→21:00)
[2017-08-01 06:44] LABS: CALCIUM 8.6 mg/dl (8.5-10.1); CREATININE 0.88 mg/dl (0.60-1.40); POTASSIUM 4.1 mmol/L (3.5-5.1)
[2017-08-01 07:08] VITALS: BP 130/79; PULSE 79; TEMP 36.6; O2SAT 94
[2017-08-01 08:00] VITALS: O2SAT 94
[2017-08-01] MEDS: CHOLECALCIFEROL 1000 INTER.UNIT TAB PO SCH (08:33)
[2017-08-01] MEDS: FLUTICASONE PROPIONATE NA SPR 16 GM BTL SCH (08:33)
[2017-08-01] MEDS: DOCUSATE SODIUM 100 MG CAP PO SCH (08:33)
[2017-08-01] MEDS: FERROUS SULFATE 325 MG TAB PO SCH (08:34)
[2017-08-01] MEDS: CEROVITE ADV FORMULA TAB PO SCH (08:34)
[2017-08-01] MEDS: MULTIVITAMIN TAB PO SCH (08:36)
[2017-08-01] MEDS: CALCIUM POLYCARBOPHIL 1 TAB PO SCH (08:36)
[2017-08-01] MEDS: SITAGLIPTIN 100 MG TAB PO SCH (08:36)
[2017-08-01] MEDS: GABAPENTIN 100 MG CAP PO SCH ×2 (08:36→19:59)
[2017-08-01] MEDS: ASCORBIC ACID 500 MG TAB PO SCH (08:36)
[2017-08-01] MEDS: GLUCOSAMINE SULFATE 500 MG CAP PO SCH ×2 (08:36→19:56)
[2017-08-01] MEDS: OMEGA-3 (PURIFIED FISH OIL) 1 GM CAP PO SCH (08:37)
[2017-08-01] MEDS: CEPHALEXIN MONOHYDRATE 500 MG CAP PO SCH ×4 (08:37→19:55)
[2017-08-01] MEDS: CeleBREX 200 MG CAP PO SCH (08:37)
[2017-08-01] MEDS: MAGNESIUM OXIDE 400 MG TAB PO SCH (08:37)
[2017-08-01] MEDS: LUBIPROSTONE 8 MCG CAP PO SCH ×2 (08:38→19:57)
[2017-08-01] MEDS: VITAMIN B COMPLEX TAB PO SCH (08:50)
[2017-08-01] MEDS: ASPIRIN 81 MG ECTAB PO SCH (08:50)
[2017-08-01] MEDS: VESICARE 5 MG PO SCH (08:52)
[2017-08-01 09:41] VITALS: O2SAT 99
[2017-08-01 12:01] VITALS: Ht 182.9 cm; Wt 89.0 kg
--- NOTE | 2017-08-01 14:25 | Orthopedic Consultation ---
Orthopedic Consultation Date of Consultation: Aug 01, 2017. Attending Physician: Blair Montgomery MD Reason for Consultation: Neck issues. History of Present Illness This is a 67-year-old male with advanced peripheral neuropathy and status post multilevel anterior cervical decompression fusion. His most recent surgery was in in March 2013. He has had multiple surgeries to the anterior cervical spine. He states over the past year he has had more more swallowing difficulties. He believes that it is due to the instrumentation in the front of his neck. He does however note that the symptoms began a few years after the surgery. He denies having had previous swallowing study in the past. He denies any cervicalgia denies any radicular complaints in the arms. He states he has some numbness in the fingertips. He is status post foot surgery and notes significant severe neuropathy of the lower extremities. Past Medical/Surgical History Medical Problems: (1) Ambulatory dysfunction Status: Acute (2) Fall Status: Acute (3) Multiple lacerations Status: Acute Social History Smoking Status: Former Smoker Alcohol Use: none Housing Status: lives with family Allergies Coded Allergies: Sulfa Drugs (Unverified Allergy, Unknown, RASH, ITCHINESS, 07/29/17) Home Medications Scheduled Ascorbic Acid (Ascorbic Acid), 1,000 MG PO DAILY Aspirin Enteric Coated (Ecotrin Or Generic), 81 MG PO DAILY B-Complex Vitamins (Vitamin B Complex), 1 TAB PO DAILY Calcium Polycarbophil (Calcium Polycarbophil), 1 TAB PO DAILY Celecoxib (CeleBREX), 1 CAP PO DAILY Cholecalciferol (D 5000), 1 CAP PO DAILY Cinnamon (Cinnamon), 1,000 MG PO BID Coenzyme Q10 (Ubidecarenone) (Co Q10), 100 MG PO DAILY Docusate Sodium (Docusate Sodium), 1 CAP PO DAILY Famotidine (Pepcid), 1 TAB PO HS Ferrous Sulfate (Kp Ferrous Sulfate), 1 TAB PO DAILY Fish Oil (Pioneer-3), 1 CAP PO DAILY Fluticasone Propionate (Nasal) (Flonase Allergy Relief), 2 SPRAYS NA DAILY Gabapentin (Neurontin), 100 MG PO BID Glucosamine Sulfate (Glucosamine), 1,000 MG PO BID Lubiprostone (Amitiza), 1 CAP PO BID Magnesium Oxide (Magnesium Oxide), 1 CAP PO DAILY Melatonin (Melatonin Maximum Strengt), Unknown Dose PO HS Mometasone Furoate (Nasal) (Mometasone Furoate), 1 SPRAY NA DAILY Multivitamin (Multivitamin), 1 TAB PO DAILY Ocuvite Preservision (Ocuvite Preservision), 2 TAB PO DAILY Rosuvastatin Calcium (Crestor), 1 TAB PO HS Sitagliptin Phosphate (Januvia), 100 MG PO DAILY Solifenacin (Vesicare), 5 MG PO DAILY Vitamins W/ Lipotropics (Lipoflavonoid), 1 TAB PO DAILY [tumeric], 500 MG PO DAILY Current Inpatient Medications Current Inpatient Medications Medications (Trade) Dose Ordered Sig/Peter Route Start Time Stop Time Status Last Admin Dose Admin Acetaminophen/ Hydrocodone Bitart ([place] 7.5/325 Tab) 1 tab Q6H PRN PO 07/29/17 19:30 08/12/17 19:29 08/01/17 00:19 1 TAB Acetaminophen (Tylenol Tab) 650 mg Q4H PRN PO 07/29/17 20:15 08/28/17 20:14 Ondansetron HCl (Zofran Inj) 4 mg Q6H PRN IV 07/29/17 20:15 08/28/17 20:14 Cephalexin Monohydrate (Keflex Cap) 500 mg QID PO 07/29/17 21:00 08/05/17 20:59 08/01/17 13:29 500 MG Aspirin (Ecotrin Tab) 81 mg DAILY PO 07/30/17 08:00 08/29/17 08:59 08/01/17 08:50 81 MG Calcium Polycarbophil ([place] Tab) 1 tab DAILY PO 07/30/17 08:00 08/29/17 08:59 08/01/17 08:36 1 TAB Celecoxib (CeleBREX CAP) 200 mg DAILY PO 07/30/17 08:00 08/29/17 08:59 08/01/17 08:37 200 MG Docusate Sodium (coLACE CAP) 100 mg DAILY PO 07/30/17 08:00 08/29/17 08:59 08/01/17 08:33 100 MG Famotidine (Pepcid Tab) 40 mg HS PO 07/29/17 21:00 08/28/17 20:59 07/31/17 19:46 40 MG Fish Oil (Pioneer-3 (Purified Fish Oil) Cap) 1 gm DAILY PO 07/30/17 08:00 08/29/17 08:59 08/01/17 08:37 1 GM Gabapentin (Neurontin Cap) 100 mg BID PO 07/29/17 21:00 08/28/17 20:59 08/01/17 08:36 100 MG Multivitamins (Multivitamin Tab) 1 tab DAILY PO 07/30/17 08:00 08/29/17 08:59 08/01/17 08:36 1 TAB Multivitamins/ Minerals (Multivitamin W/ Minerals Tab) 2 tab DAILY PO 07/30/17 08:00 08/29/17 08:59 08/01/17 08:34 2 TAB Rosuvastatin Calcium (Crestor Tab) 5 mg HS PO 07/29/17 21:00 08/28/17 20:59 07/31/17 19:48 5 MG Sitagliptin Phosphate (Januvia Tab) 100 mg DAILY PO 07/30/17 08:00 08/29/17 08:59 08/01/17 08:36 100 MG Ascorbic Acid (Vitamin C Tab) 1,000 mg DAILY PO 07/30/17 08:00 08/29/17 08:59 08/01/17 08:36 1,000 MG Vitamin B Complex (Vitamin B Complex) 1 tab DAILY PO 07/30/17 08:00 08/29/17 08:59 08/01/17 08:50 1 TAB Cholecalciferol (Vitamin D Tab) 5,000 inter.unit DAILY PO 07/30/17 08:00 08/29/17 08:59 08/01/17 08:33 5,000 INTER.UNIT Ferrous Sulfate (Feosol Tab) 325 mg DAILY PO 07/30/17 08:00 08/29/17 08:59 08/01/17 08:34 325 MG Glucosamine Sulfate (Glucosamine Cap) 1,000 mg BID PO 07/29/17 21:00 08/28/17 20:59 08/01/17 08:36 1,000 MG Lubiprostone (Amitiza) 24 mcg BID PO 07/29/17 21:00 08/28/17 20:59 08/01/17 08:38 24 MCG Magnesium Oxide (Mag-Ox Tab) 400 mg DAILY PO 07/30/17 08:00 08/29/17 08:59 08/01/17 08:37 400 MG Fluticasone Propionate (Flonase Nasal [place]) 2 sprays DAILY NA 07/30/17 08:00 08/29/17 08:59 08/01/17 08:33 2 SPRAYS Miscellaneous (Iv Fluids Completed) 1 ea PRN PRN N/A 07/29/17 21:15 07/29/18 21:14 Insulin Aspart (novoLOG ASPART) SLIDING SCALE If C... ACHS SC 07/30/17 07:00 08/29/17 06:59 07/31/17 17:41 4 UNITS Glucose (Glucose 40% Gel) 15-30 GRAMS 15 GRAMS... UD PRN PO 07/29/17 21:30 08/28/17 21:29 Glucose (Glucose Chew Tab) 4-8 Tablets 4 Tabl... UD PRN PO 07/29/17 21:30 08/28/17 21:29 Dextrose (Dextrose 50% 50ML Syringe) 25-50ML OF 50% DW IV FOR... UD PRN IV 07/29/17 21:30 08/28/17 21:29 Glucagon (Glucagon Inj) 1 mg UD PRN SQ 07/29/17 21:30 08/28/17 21:29 Solifenacin (Vesicare) 5 mg QAM PO 07/31/17 08:00 08/30/17 07:59 08/01/17 08:52 5 MG Morphine Sulfate (MoRPHine SULFATE INJ) 3 mg Q3HWA PRN IV 07/31/17 09:00 08/14/17 08:59 07/31/17 13:31 3 MG Physical Exam Date Time Temp Pulse Resp B/P (MAP) Pulse Ox O2 Delivery O2 Flow Rate FiO2 08/01/17 09:41 99 Room Air 08/01/17 08:00 94 Room Air 08/01/17 07:08 36.6 79 20 130/79 (96) 94 Room Air 08/01/17 00:05 Room Air 07/31/17 20:00 95 Room Air 07/31/17 16:03 36.5 82 18 133/76 (95) 100 Room Air 07/31/17 16:00 95 Room Air Laboratory Results Last 24 Hours Test 07/31/17 16:39 07/31/17 20:14 08/01/17 05:41 08/01/17 08:54 Bedside Glucose 158 mg/dl 114 mg/dl 130 mg/dl White Blood Count 7.12 K/uL Red Blood Count 3.80 M/uL Hemoglobin 11.0 g/dL Hematocrit 32.8 % Mean Corpuscular Volume 86.3 fL Mean Corpuscular Hemoglobin 28.9 pg Mean Corpuscular Hemoglobin Concent 33.5 g/dl Platelet Count 252 K/uL Mean Platelet Volume 10.3 fL Neutrophils (%) (Auto) 65.5 % Lymphocytes (%) (Auto) 21.9 % Monocytes (%) (Auto) 8.4 % Eosinophils (%) (Auto) 2.8 % Basophils (%) (Auto) 0.8 % Neutrophils # (Auto) 4.66 K/uL Lymphocytes # (Auto) 1.56 K/uL Monocytes # (Auto) 0.60 K/uL Eosinophils # (Auto) 0.20 K/uL Basophils # (Auto) 0.06 K/uL RDW Standard Deviation 41.1 fL RDW Coefficient of Variation 13.0 % Immature Granulocyte % (Auto) 0.6 % Immature Granulocyte # (Auto) 0.04 K/uL Sodium Level 138 mmol/L Potassium Level 4.1 mmol/L Chloride Level 106 mmol/L Carbon Dioxide Level 26 mmol/L Anion Gap 6.0 mmol/L Blood Urea Nitrogen 13 mg/dl Creatinine 0.88 mg/dl Est Creatinine Clear Calc Drug Dose 90.7 ml/min Estimated GFR () 103.7 Estimated GFR (Non- 89.5 BUN/Creatinine Ratio 15.0 Random Glucose 97 mg/dl Calcium Level 8.6 mg/dl Test 08/01/17 11:48 Bedside Glucose 100 mg/dl Assessment & Plan Assessment status post anterior cervical decompression and fusion. Plan at this time I recommend that he undergo a swallowing evaluation and consultation. This can be done an outpatient basis pending his disposition.
--- NOTE | 2017-08-01 14:31 | Progress Note ---
Internal Med Progress Note Date of Service: Aug 01, 2017. Provider Documentation: SUBJECTIVE: ambulating in room with help constipated eating ok denies pain no chest pain or sob no nausea awaiting placement OBJECTIVE: Vital Signs-as noted below Exam: General-alert and oriented. ENT-Normal hearing Neck-no neck masses Lungs-cta b/l no wheezing no crackles present Heart-S1 and S2 heard regular rate and rhythm no murmurs Abdomen-Soft bowel sounds present non tender no distension Extremities-no edema no erythema dressing in finger, right elbow and b/l feet Neuro-alert and awake moves extremities Lab data as noted below. ASSESSMENT & PLAN: 67M PRESENTED WITH FALL AND AWAITING PLACEMENT FALL DECONDITIONING LACERATIONS presented from home where he suffered a fall out of the shower with several lacerations recently moved in with his daughter Hx of diabetic neuropathy- ambulatory dysfunction Had suture repair of the right upper arm and right leg in the ED,on prophylactic cephalexin as per suture repair recommendations Was attempted to get patient in rehab from the ED however authorization was unable to be obtained social service for d/c planning inurance denied rehab abut accepted SNF PT/OT await placement DIABETES Hgb A1c 5.4 on Januvia will monitor DYSLIPIDEMIA on statin. Abdominal pain improving will monitor. Low voice since spine fx few years back likes to see seen by speech and appreciate inputs recommends swallow evaluation in patient vs out patient depending on patient disposition reconsulted speech Anemia? f/u labs hb 11.0 today DVT PROPHYLAXIS SCDs DISPOSITION plan for placement social service for d/c planning pt/ot Vital Signs: Date Time Temp Pulse Resp B/P (MAP) Pulse Ox O2 Delivery O2 Flow Rate FiO2 08/01/17 09:41 99 Room Air 08/01/17 08:00 94 Room Air 08/01/17 07:08 36.6 79 20 130/79 (96) 94 Room Air 08/01/17 00:05 Room Air 07/31/17 20:00 95 Room Air 07/31/17 16:03 36.5 82 18 133/76 (95) 100 Room Air 07/31/17 16:00 95 Room Air Lab Results: Results Past 24 Hours Test 07/31/17 16:39 07/31/17 20:14 08/01/17 05:41 08/01/17 08:54 Range/Units Bedside Glucose 158 114 130 70-99 mg/dl White Blood Count 7.12 4.8-10.8 K/uL Red Blood Count 3.80 4.7-6.1 M/uL Hemoglobin 11.0 14.0-18.0 g/dL Hematocrit 32.8 42-52 % Mean Corpuscular Volume 86.3 80-100 fL Mean Corpuscular Hemoglobin 28.9 25-34 pg Mean Corpuscular Hemoglobin Concent 33.5 32-36 g/dl Platelet Count 252 130-400 K/uL Mean Platelet Volume 10.3 7.4-10.4 fL Neutrophils (%) (Auto) 65.5 % Lymphocytes (%) (Auto) 21.9 % Monocytes (%) (Auto) 8.4 % Eosinophils (%) (Auto) 2.8 % Basophils (%) (Auto) 0.8 % Neutrophils # (Auto) 4.66 1.4-6.5 K/uL Lymphocytes # (Auto) 1.56 1.2-3.4 K/uL Monocytes # (Auto) 0.60 0.11-0.59 K/uL Eosinophils # (Auto) 0.20 0-0.5 K/uL Basophils # (Auto) 0.06 0-0.2 K/uL RDW Standard Deviation 41.1 36.4-46.3 fL RDW Coefficient of Variation 13.0 11.5-14.5 % Immature Granulocyte % (Auto) 0.6 % Immature Granulocyte # (Auto) 0.04 0.00-0.02 K/uL Sodium Level 138 136-145 mmol/L Potassium Level 4.1 3.5-5.1 mmol/L Chloride Level 106 98-107 mmol/L Carbon Dioxide Level 26 21-32 mmol/L Anion Gap 6.0 3-11 mmol/L Blood Urea Nitrogen 13 7-18 mg/dl Creatinine 0.88 0.60-1.40 mg/dl Est Creatinine Clear Calc Drug Dose 90.7 ml/min Estimated GFR () 103.7 Estimated GFR (Non- 89.5 BUN/Creatinine Ratio 15.0 10-20 Random Glucose 97 70-99 mg/dl Calcium Level 8.6 8.5-10.1 mg/dl Test 08/01/17 11:48 Range/Units Bedside Glucose 100 70-99 mg/dl
[2017-08-01 15:10] VITALS: BP 118/68; PULSE 80; TEMP 36.7; O2SAT 99
[2017-08-01 16:00] VITALS: O2SAT 93
[2017-08-01] MEDS: FAMOTIDINE 20 MG TAB PO SCH (19:56)
[2017-08-01] MEDS: ROSUVASTATIN CALCIUM 10 MG TAB PO SCH (19:58)
[2017-08-02] MEDS: LUBIPROSTONE 8 MCG CAP PO SCH (07:45)
[2017-08-02] MEDS: CHOLECALCIFEROL 1000 INTER.UNIT TAB PO SCH (07:45)
[2017-08-02] MEDS: GLUCOSAMINE SULFATE 500 MG CAP PO SCH (07:45)
[2017-08-02] MEDS: DOCUSATE SODIUM 100 MG CAP PO SCH (07:45)
[2017-08-02] MEDS: CEROVITE ADV FORMULA TAB PO SCH (07:45)
[2017-08-02] MEDS: SITAGLIPTIN 100 MG TAB PO SCH (07:45)
[2017-08-02] MEDS: FERROUS SULFATE 325 MG TAB PO SCH (07:45)
[2017-08-02] MEDS: CEPHALEXIN MONOHYDRATE 500 MG CAP PO SCH ×2 (07:46→11:18)
[2017-08-02] MEDS: CeleBREX 200 MG CAP PO SCH (07:46)
[2017-08-02] MEDS: VITAMIN B COMPLEX TAB PO SCH (07:46)
[2017-08-02] MEDS: CALCIUM POLYCARBOPHIL 1 TAB PO SCH (07:46)
[2017-08-02] MEDS: ASPIRIN 81 MG ECTAB PO SCH (07:46)
[2017-08-02] MEDS: MAGNESIUM OXIDE 400 MG TAB PO SCH (07:46)
[2017-08-02] MEDS: GABAPENTIN 100 MG CAP PO SCH (07:46)
[2017-08-02] MEDS: ASCORBIC ACID 500 MG TAB PO SCH (07:46)
[2017-08-02] MEDS: FLUTICASONE PROPIONATE NA SPR 16 GM BTL SCH (07:46)
[2017-08-02] MEDS: OMEGA-3 (PURIFIED FISH OIL) 1 GM CAP PO SCH (07:46)
[2017-08-02] MEDS: MULTIVITAMIN TAB PO SCH (07:46)
[2017-08-02] MEDS: VESICARE 5 MG PO SCH (07:47)
[2017-08-02 07:55] VITALS: BP 135/70; PULSE 83; TEMP 36.8; O2SAT 96
[2017-08-02 08:00] VITALS: O2SAT 96
[2017-08-02] MEDS: INSULIN ASPART 100 UNITS/ML 3 ML PEN SC SCH ×2 (08:52→11:00)
[2017-08-02 13:41] VITALS: BP 135/70; PULSE 83; TEMP 36.8; O2SAT 96
--- NOTE | 2017-08-02 14:46 | Progress Note ---
Medicine Progress Note Date & Time of Visit: Aug 02, 2017 at 14:38. Subjective seen sitting up in bed comfortable alert states he feels fine denies chest pain, dyspnea, dizziness no other symptoms agreeable for discharge today daughter at the bedside Objective Last 8 Hrs Date Time Temp Pulse Resp B/P (MAP) Pulse Ox O2 Delivery O2 Flow Rate FiO2 08/02/17 13:41 36.8 83 17 96 Room Air 08/02/17 08:00 96 Room Air 08/02/17 07:55 36.8 83 17 135/70 (91) 96 Room Air Physical Exam: General- oriented x 3, not in distress, speaks in sentences with no effort Head- atraumatic Eyes-nicteric ENT- oropharynx clear Neck- supple, no JVD, no adenopathy Lungs- clear breath sounds bilaterally Heart- regular rhythm; no murmur, normal rate Abdomen- normal bowel sounds, soft, nontender Extremities- no pretibial edema, no calf tenderness; peripheral pulses intact Neuro- alert, oriented x 3; slow speech , no other gross focal neuro deficits Skin- warm & dry Laboratory Results: Last 24 Hours Test 08/01/17 17:55 08/01/17 20:49 08/02/17 08:10 08/02/17 11:45 Bedside Glucose 109 mg/dl 98 mg/dl 102 mg/dl 108 mg/dl Assessment & Plan 67M PRESENTED WITH FALL AND AWAITING PLACEMENT FALL DECONDITIONING LACERATIONS presented from home where he suffered a fall out of the shower with several lacerations recently moved in with his daughter Hx of diabetic neuropathy- ambulatory dysfunction Had suture repair of the right upper arm and right leg in the ED,on prophylactic cephalexin as per suture repair recommendations -- continue PT/OT Fall Precautions please -- continue Cephalexin QID, last day 08/04/17 monitor sutures on the right arm and left leg, remove sutures on August 09, 2017 ( 12 days since placement on 07/29/17) DIABETES Hgb A1c 5.4 on Januvia DYSLIPIDEMIA on statin. Abdominal pain resolved Low voice since spine fx few years back by Dr. Katharine Azevedo recommends swallow evaluation in patient vs out patient reconsulted Speech Therapist- recommend moist mechanical soft diet, aspiration precautions continue speech therapy monitor closely and consider repeat swallow evaluation if with worsening dysphagia Anemia Hg 11 continue Iron further work up as outpatient monitor regularly DVT PROPHYLAXIS SCDs DISPOSITION d/c to SNF ff up c/o PCP in SNF Current Inpatient Medications: Current Inpatient Medications Medications (Trade) Dose Ordered Sig/Peter Route Start Time Stop Time Status Last Admin Dose Admin Acetaminophen/ Hydrocodone Bitart ([place] 7.5/325 Tab) 1 tab Q6H PRN PO 07/29/17 19:30 08/12/17 19:29 08/01/17 19:54 1 TAB Acetaminophen (Tylenol Tab) 650 mg Q4H PRN PO 07/29/17 20:15 08/28/17 20:14 Ondansetron HCl (Zofran Inj) 4 mg Q6H PRN IV 07/29/17 20:15 08/28/17 20:14 Cephalexin Monohydrate (Keflex Cap) 500 mg QID PO 07/29/17 21:00 08/05/17 20:59 08/02/17 11:18 500 MG Aspirin (Ecotrin Tab) 81 mg DAILY PO 07/30/17 08:00 08/29/17 08:59 08/02/17 07:46 81 MG Calcium Polycarbophil ([place] Tab) 1 tab DAILY PO 07/30/17 08:00 08/29/17 08:59 08/02/17 07:46 1 TAB Celecoxib (CeleBREX CAP) 200 mg DAILY PO 07/30/17 08:00 08/29/17 08:59 08/02/17 07:46 200 MG Docusate Sodium (coLACE CAP) 100 mg DAILY PO 07/30/17 08:00 08/29/17 08:59 08/02/17 07:45 100 MG Famotidine (Pepcid Tab) 40 mg HS PO 07/29/17 21:00 08/28/17 20:59 08/01/17 19:56 40 MG Fish Oil ([place]-3 (Purified Fish Oil) Cap) 1 gm DAILY PO 07/30/17 08:00 08/29/17 08:59 08/02/17 07:46 1 GM Gabapentin (Neurontin Cap) 100 mg BID PO 07/29/17 21:00 08/28/17 20:59 08/02/17 07:46 100 MG Multivitamins (Multivitamin Tab) 1 tab DAILY PO 07/30/17 08:00 08/29/17 08:59 08/02/17 07:46 1 TAB Multivitamins/ Minerals (Multivitamin W/ Minerals Tab) 2 tab DAILY PO 07/30/17 08:00 08/29/17 08:59 08/02/17 07:45 2 TAB Rosuvastatin Calcium (Crestor Tab) 5 mg HS PO 07/29/17 21:00 08/28/17 20:59 08/01/17 19:58 5 MG Sitagliptin Phosphate (Januvia Tab) 100 mg DAILY PO 07/30/17 08:00 08/29/17 08:59 08/02/17 07:45 100 MG Ascorbic Acid (Vitamin C Tab) 1,000 mg DAILY PO 07/30/17 08:00 08/29/17 08:59 08/02/17 07:46 1,000 MG Vitamin B Complex (Vitamin B Complex) 1 tab DAILY PO 07/30/17 08:00 08/29/17 08:59 08/02/17 07:46 1 TAB Cholecalciferol (Vitamin D Tab) 5,000 inter.unit DAILY PO 07/30/17 08:00 08/29/17 08:59 08/02/17 07:45 5,000 INTER.UNIT Ferrous Sulfate (Feosol Tab) 325 mg DAILY PO 07/30/17 08:00 08/29/17 08:59 08/02/17 07:45 325 MG Glucosamine Sulfate (Glucosamine Cap) 1,000 mg BID PO 07/29/17 21:00 08/28/17 20:59 08/02/17 07:45 1,000 MG Lubiprostone (Amitiza) 24 mcg BID PO 07/29/17 21:00 08/28/17 20:59 08/02/17 07:45 24 MCG Magnesium Oxide (Mag-Ox Tab) 400 mg DAILY PO 07/30/17 08:00 08/29/17 08:59 08/02/17 07:46 400 MG Fluticasone Propionate (Flonase Nasal [place]) 2 sprays DAILY NA 07/30/17 08:00 08/29/17 08:59 08/02/17 07:46 2 SPRAYS Miscellaneous (Iv Fluids Completed) 1 ea PRN PRN N/A 07/29/17 21:15 07/29/18 21:14 Insulin Aspart (novoLOG ASPART) SLIDING SCALE If C... ACHS SC 07/30/17 07:00 08/29/17 06:59 08/02/17 08:52 2 UNITS Glucose (Glucose 40% Gel) 15-30 GRAMS 15 GRAMS... UD PRN PO 07/29/17 21:30 08/28/17 21:29 Glucose (Glucose Chew Tab) 4-8 Tablets 4 Tabl... UD PRN PO 07/29/17 21:30 08/28/17 21:29 Dextrose (Dextrose 50% 50ML Syringe) 25-50ML OF 50% DW IV FOR... UD PRN IV 07/29/17 21:30 08/28/17 21:29 Glucagon (Glucagon Inj) 1 mg UD PRN SQ 07/29/17 21:30 08/28/17 21:29 Solifenacin (Vesicare) 5 mg QAM PO 07/31/17 08:00 08/30/17 07:59 08/02/17 07:47 5 MG Morphine Sulfate (MoRPHine SULFATE INJ) 3 mg Q3HWA PRN IV 07/31/17 09:00 08/14/17 08:59 07/31/17 13:31 3 MG
[2017-08-02] MEDS ORDERED: KFL500 PO (14:48)
--- NOTE | 2017-08-02 14:53 | Discharge Instructions ---
Discharge Instructions Date of Service Aug 02, 2017. Admission Reason for Admission: FALL Discharge Discharge Diagnosis / Problem: s/p FALL, DECONDITIONING Discharge Goals Goal(s): Diagnostic testing, Therapeutic intervention Activity Recommendations Activity Level: Assistance Required Therapies: Physical Therapy, Occupational Therapy, Speech Therapy . Additional Information Patient informed of condition: Yes Advance Directives: No (UNKNOWN) DNR: No (PATIENT IS A FULL CODE) Level of Care: Skilled Communicable Disease: No Prognosis: Improving Instructions / Follow-Up Instructions / Follow-Up FALL PRECAUTIONS. MONITOR SUTURES ON THE RIGHT ARM AND LEFT LEG. REMOVE SUTURES ON 08/09/17. MONITOR BILATERAL FEET MILD EDEMA. ASPIRATION PRECAUTIONS PLEASE. MOIST, DENTAL SOFT DIET. CONSIDER REPEAT SWALLOW STUDIES IF WORSENING. PLEASE REFER TO ACCOMPANYING HOSPITAL DISCHARGE SUMMARY FOR FURTHER DETAILS. Current Hospital Diet Patient's current hospital diet: Diabetes Type 2 Diet Discharge Diet Recommended Diet: Diabetes Type 2 Diet Diet Texture: Dental Soft (bite-sized) (MOIST) Pending Studies Studies pending at discharge: no Physician Orders On Transfer Special Precautions: FALL PRECAUTIONS. MONITOR SUTURES ON THE RIGHT ARM AND LEFT LEG. REMOVE SUTURES ON 08/09/17. MONITOR BILATERAL FEET MILD EDEMA. ASPIRATION PRECAUTIONS PLEASE. MOIST, DENTAL SOFT DIET. CONSIDER REPEAT SWALLOW STUDIES IF WORSENING. PLEASE REFER TO ACCOMPANYING HOSPITAL DISCHARGE SUMMARY FOR FURTHER DETAILS. Laboratory Results Hemoglobin A1c Test 07/30/17 05:35 Range/Units Estimated Average Glucose 108 mg/dl Hemoglobin A1c 5.4 4.5-5.6 % Medical Emergencies . Who to Call and When: Medical Emergencies: If at any time you feel your situation is an emergency, please call 911 immediately. . Non-Emergent Contact Non-Emergency issues call your: Primary Care Provider Call Non-Emergent contact if: you have a fever, wound has increased drainage, wound has increased redness, wound has increased pain, you have any medication questions . Past History Medical & Surgical History: (1) Fall (2) Multiple lacerations (3) Ambulatory dysfunction (4) HTN (hypertension) (5) HLD (hyperlipidemia) (6) PAD (peripheral artery disease) (7) Diabetes mellitus (8) Diabetic neuropathy (9) H/O cervical spine surgery (10) right achilles tendon surgery . "Provider Documentation" section prepared by Tevin Acosta. . Core Measure Problem Core Measures: None
--- NOTE | 2017-08-02 14:57 | Discharge Summary ---
Discharge Summary Date of Service Aug 02, 2017. Discharge Summary Admission Date: Jul 29, 2017 at 20:04 Discharge Date: Aug 02, 2017 Principal Diagnosis: S/P FALL, DECONDITIONING Secondary Diagnoses/Problems: PLEASE REFER TO HOSPITAL COURSE BELOW. Procedures: CT HEAD WITHOUT CONTRAST (CT) CLINICAL HISTORY: Head pain status post head trauma COMPARISON STUDY: No previous studies for comparison. TECHNIQUE: Axial CT of the brain is performed from the vertex to the skull base. IV contrast was not administered for this examination. A dose lowering technique was utilized adhering to the principles of ALARA. CT DOSE: 1163.49 mGy.cm FINDINGS: No intra or extra-axial mass lesions are visualized. There is no CT evidence of acute cortical infarction. There is no evidence of midline shift. There is no acute hemorrhage. No calvarial fractures are visualized. There are patchy white matter hypodensities likely on a small vessel basis. There is no evidence of pathologic ventricular dilatation. There is no evidence of acute sinusitis IMPRESSION: No acute intracranial findings Electronically signed by: Gallo Colon M.D. 07/29/2017 11:44 AM CHEST ONE VIEW PORTABLE CLINICAL HISTORY: fall trauma COMPARISON STUDY: 05/15/2012 FINDINGS: The bones soft tissues and hemidiaphragms are normal. The cardiomediastinal silhouette is normal. The lungs are clear. The pulmonary vasculature is normal. IMPRESSION: Negative chest. CERVICAL SPINE W/O CT DOSE: HISTORY: Trauma fall, head injury TECHNIQUE: Multiaxial CT images of the cervical spine were performed and reformatted in the sagittal and coronal plane without the use of contrast. A dose lowering technique was utilized adhering to the principles of ALARA. COMPARISON: None. FINDINGS: Findings consistent with fusion from C3 through C7. There has been a corpectomy at C3-C4 level. No evidence for a posttraumatic abnormality. No evidence for subluxation. Posterior elements appear intact. Prevertebral soft tissues are unremarkable. IMPRESSION: No fractures within the cervical spine. Degenerative and postoperative changes as noted RIGHT ELBOW 3 VIEWS CLINICAL HISTORY: Fall with right elbow pain. FINDINGS: 3 views of the right elbow are obtained. No prior studies are available for comparison at the time of dictation. The skeletal structures are osteopenic. There is no radiographic evidence of right elbow fracture. No joint effusion is identified. A large enthesophyte is seen at the triceps insertion. Enthesophytes are also arising from the humeral epicondyles. Dorsal soft tissue edema is noted. IMPRESSION: 1. Dorsal soft tissue edema with no radiographic evidence of right elbow fracture. 2. Degenerative change as above. Consultations: ORTHO SPINE, DR. HUERTA Pending Studies/Follow-Up: FALL PRECAUTIONS. MONITOR SUTURES ON THE RIGHT ARM AND LEFT LEG. REMOVE SUTURES ON 08/09/17. MONITOR BILATERAL FEET MILD EDEMA. ASPIRATION PRECAUTIONS PLEASE. MOIST, DENTAL SOFT DIET. CONSIDER REPEAT SWALLOW STUDIES IF WORSENING. PLEASE REFER TO HOSPITAL COURSE BELOW FOR FURTHER DETAILS. Medication Reconciliation New Medications: Cephalexin Monohydrate (Cephalexin) 500 Mg Cap 500 MG PO QID for 2 Days, #8 CAP 0 Refills Continued Medications: Ascorbic Acid (Ascorbic Acid) 1,000 Mg Tab 1000 MG PO DAILY Aspirin Enteric Coated (Ecotrin Or Generic) 81 Mg Tab 81 MG PO DAILY, TAB B-Complex Vitamins (Vitamin B Complex) 1 Tab Tab 1 TAB PO DAILY Calcium Polycarbophil (Calcium Polycarbophil) 625 Mg Tab 1 TAB PO DAILY Celecoxib (CeleBREX) 200 Mg Cap 1 CAP PO DAILY for 30 Days, #30 CAP 2 Refills Cholecalciferol (D 5000) 5,000 Unit Cap 1 CAP PO DAILY Cinnamon (Cinnamon) 500 Mg Cap 1000 MG PO BID Coenzyme Q10 (Ubidecarenone) (Co Q10) 50 Mg Cap 100 MG PO DAILY, CAP Docusate Sodium (Docusate Sodium) 100 Mg Cap 1 CAP PO DAILY for 30 Days, #30 CAP Famotidine (Pepcid) 40 Mg Tab 1 TAB PO HS for 90 Days, TAB 3 Refills Ferrous Sulfate (Kp Ferrous Sulfate) 325 Mg Tab 1 TAB PO DAILY for 30 Days, #30 TAB 3 Refills Fish Oil ([place]-3) 1 Ea Cap 1 CAP PO DAILY, CAP Gabapentin (Neurontin) 100 Mg Cap 100 MG PO BID, CAP Glucosamine Sulfate (Glucosamine) 1,000 Mg Tab 1000 MG PO BID, TAB Lubiprostone (Amitiza) 24 Mcg Cap 1 CAP PO BID for 30 Days, #60 CAP 5 Refills Magnesium Oxide (Magnesium Oxide) 400 Mg Cap 1 CAP PO DAILY for 30 Days, #30 CAP 3 Refills Melatonin (Melatonin Maximum Strengt) Unknown Strength Tab Unknown Dose PO HS for 30 Days, #30 TAB Mometasone Furoate (Nasal) (Mometasone Furoate) 50 Mcg/Act Spr 1 SPRAY NA DAILY Multivitamin (Multivitamin) Tab 1 TAB PO DAILY, TAB Ocuvite Preservision (Ocuvite Preservision) 1 Tab Tab 2 TAB PO DAILY, TAB Rosuvastatin Calcium (Crestor) 5 Mg Tab 1 TAB PO HS for 30 Days, TAB 5 Refills Sitagliptin Phosphate (Januvia) 100 Mg Tab 100 MG PO DAILY, TAB Solifenacin (Vesicare) 5 Mg Tab 5 MG PO DAILY, TAB Vitamins W/ Lipotropics (Lipoflavonoid) 1 Tab Tab 1 TAB PO DAILY [tumeric] () 500 MG PO DAILY Discontinued Medications: Fluticasone Propionate (Nasal) (Flonase Allergy Relief) 50 Mcg/Act Spr 2 SPRAYS NA DAILY Admission Information HPI (per Admitting provider): 67-year-old male who presents to the ER after suffering a fall with multiple lacerations at home. Patient recently moved in with his daughter due to increasing weakness. Patient reports a long-standing history of diabetic neuropathy. He also had surgery on his right Achilles tendon approximately 2 years ago which he reports he did not receive therapy for and has subsequently had difficulty ambulating. He uses a wheelchair most the time. Patient also has a chronically weak and hoarse voice from a cervical spine fracture a few years ago. Patient reports that today while he was in the shower he lost his balance and fell out of the shower onto the toilet breaking it in suffered multiple lacerations to the right arm and right leg. Patient did not know how to use a cell phone call for help. He went outside and neighbors found him and called for help. Patient does not believe that he passed out. He denies lightheadedness and dizziness. No chest pain or shortness of breath. Patient denies any other recent illnesses, fever, or chills. No abdominal pain, nausea , vomiting, or diarrhea. He denies any urinary symptoms. In the ED patient underwent laceration repair of his right arm and right leg. Head CT and cervical spine CT are negative for acute findings. Chest x-ray is negative for acute findings. Vital signs remained stable. Patient received a dose of prophylactic Rocephin for his lacerations. He was also given IVF and morphine for pain control. Physical Exam (per Admitting): General Appearance: WD/WN, no apparent distress Head: normocephalic, atraumatic Eyes: normal inspection, EOMI, sclerae normal ENT: hearing grossly normal, + muffled/hoarse voice (Weak voice, chronic per patient), + pertinent finding (Mucous membranes moist) Neck: supple, no JVD, trachea midline Respiratory/Chest: lungs clear, normal breath sounds, no respiratory distress Cardiovascular: regular rate, rhythm, no edema, normal peripheral pulses Abdomen/GI: normal bowel sounds, non tender, soft, no organomegaly Extremities/Musculoskelatal: no calf tenderness, normal capillary refill, + swelling (Noted over right elbow) Neurologic/Psych: no motor/sensory deficits, alert, normal mood/affect, oriented x 3 Skin: warm/dry, + pertinent finding (Dressings intact to right upper extremity, right lower extremity, and left lower extremity; patient underwent laceration repair with sutures to the right upper arm and right leg) Hospital Course 67M PRESENTED WITH FALL AND AWAITING PLACEMENT FALL DECONDITIONING LACERATIONS presented from home where he suffered a fall out of the shower with several lacerations recently moved in with his daughter Hx of diabetic neuropathy- ambulatory dysfunction Had suture repair of the right upper arm and right leg in the ED,on prophylactic cephalexin as per suture repair recommendations -- continue PT/OT Fall Precautions please -- continue Cephalexin QID, last day 08/04/17 monitor sutures on the right arm and left leg, remove sutures on August 09, 2017 ( 12 days since placement on 07/29/17) DIABETES Hgb A1c 5.4 on Januvia DYSLIPIDEMIA on statin. Dysphagia since spine fx few years back by Dr. Katharine Azevedo recommends swallow evaluation in patient vs out patient reconsulted Speech Therapist- recommend moist dental soft diet, aspiration precautions continue speech therapy monitor closely and consider repeat swallow evaluation if with worsening dysphagia Anemia Hg 11 continue Iron supplement further work up as outpatient monitor regularly DISPOSITION d/c to SNF ff up c/o PCP in SNF Total time spent on discharge = 30 minutes This includes examination of the patient, discharge planning, medication reconciliation, and communication with other providers. Discharge Instructions Discharge Instructions Date of Service Aug 02, 2017. Admission Reason for Admission: FALL Discharge Discharge Diagnosis / Problem: s/p FALL, DECONDITIONING Discharge Goals Goal(s): Diagnostic testing, Therapeutic intervention Activity Recommendations Activity Level: Assistance Required Therapies: Physical Therapy, Occupational Therapy, Speech Therapy . Additional Information Patient informed of condition: Yes Advance Directives: No (UNKNOWN) DNR: No (PATIENT IS A FULL CODE) Level of Care: Skilled Communicable Disease: No Prognosis: Improving Instructions / Follow-Up Instructions / Follow-Up FALL PRECAUTIONS. MONITOR SUTURES ON THE RIGHT ARM AND LEFT LEG. REMOVE SUTURES ON 08/09/17. MONITOR BILATERAL FEET MILD EDEMA. ASPIRATION PRECAUTIONS PLEASE. MOIST, MECHANICAL SOFT DIET. CONSIDER REPEAT SWALLOW STUDIES IF WORSENING. PLEASE REFER TO ACCOMPANYING HOSPITAL DISCHARGE SUMMARY FOR FURTHER DETAILS. Current Hospital Diet Patient's current hospital diet: Diabetes Type 2 Diet Discharge Diet Recommended Diet: Diabetes Type 2 Diet Diet Texture: Mechanical Soft (ground) (MOIST ; ASPIRATION PRECAUTIONS PLEASE) Pending Studies Studies pending at discharge: no Physician Orders On Transfer Special Precautions: FALL PRECAUTIONS. MONITOR SUTURES ON THE RIGHT ARM AND LEFT LEG. REMOVE SUTURES ON 08/09/17. MONITOR BILATERAL FEET MILD EDEMA. ASPIRATION PRECAUTIONS PLEASE. MOIST, MECHANICAL SOFT DIET. CONSIDER REPEAT SWALLOW STUDIES IF WORSENING. PLEASE REFER TO ACCOMPANYING HOSPITAL DISCHARGE SUMMARY FOR FURTHER DETAILS. Laboratory Results Hemoglobin A1c Test 07/30/17 05:35 Range/Units Estimated Average Glucose 108 mg/dl Hemoglobin A1c 5.4 4.5-5.6 % Medical Emergencies . Who to Call and When: Medical Emergencies: If at any time you feel your situation is an emergency, please call 911 immediately. . Non-Emergent Contact Non-Emergency issues call your: Primary Care Provider Call Non-Emergent contact if: you have a fever, wound has increased drainage, wound has increased redness, wound has increased pain, you have any medication questions . Past History Medical & Surgical History: (1) Fall (2) Multiple lacerations (3) Ambulatory dysfunction (4) HTN (hypertension) (5) HLD (hyperlipidemia) (6) PAD (peripheral artery disease) (7) Diabetes mellitus (8) Diabetic neuropathy (9) H/O cervical spine surgery (10) right achilles tendon surgery . "Provider Documentation" section prepared by Tevin Acosta. . Core Measure Problem Core Measures: None
== END 2017-08-02 15:22 ==
LOC: EDBD 09:44 → C.EDB 09:45 → C.4E 20:04 → ENRESERV 21:01 → UNDODEPER 07-30 01:36
PROVIDERS: ADMIT Internal Medicine; ATTEND Internal Medicine
DX: S41.111A Laceration without foreign body of right upper arm, initial encounter (principal); S81.811A Laceration without foreign body, right lower leg, initial encounter; W19.XXXA Unspecified fall, initial encounter; R29.6 Repeated falls; E11.40 Type 2 diabetes mellitus with diabetic neuropathy, unspecified; E78.5 Hyperlipidemia, unspecified; I73.9 Peripheral vascular disease, unspecified; Z79.899 Other long term (current) drug therapy; Z79.82 Long term (current) use of aspirin; Z88.2 Allergy status to sulfonamides; Z98.890 Other specified postprocedural states

== ENCOUNTER 2017-08-09 11:16 | Emergency (ER) | payer OTHER ==
[~2017-08-09 11:16] MED LIST changes: +AMT24 PO; +ASCO100061 PO; +ASPI-319 PO; -ASPI81TA21 PO; +B-COTAB18 PO; -CHOL100027 PO; +CHOLCAP10 PO; +CINN1CAP2 PO; +CLB/200 PO; +COEN1CAP28 PO; +DOCU100C31 PO; -FAMO-103 PO; +FAMO40TA6 PO; +FERR1TAB13 PO; -FINA5TAB4 PO; +GABA-112 PO; +GLUC10007 PO; +KFL500 PO; -L-ME1CAP3 PO; -LISI-729 PO; +MAGN400C2 PO; +MELATAB2 PO; +MOME6000; +MULT-190 PO; +MULT-506 PO; +OMEG10007 PO; -ROPI0.5T15 PO; +ROSU5TAB PO; -SIMV20TA5 PO; +SITA100T3 PO; -TRAM-10 PO; +VITATAB11 PO; +VSC/5 PO; +[UNRECOGNIZED DRUG - CODE] PO; -cyclobenzaprine PO; +tumeric PO
[2017-08-09 11:21] VITALS: TEMP 36.8
[2017-08-09 12:17] VITALS: BP 127/72; PULSE 82; O2SAT 95
--- NOTE | 2017-08-10 06:20 | EMERGENCY ROOM VISIT NOTE ---
ED Visit Note First contact with patient: 11:49 CHIEF COMPLAINT: Suture removal. HISTORY OF PRESENT ILLNESS: Mr. Brand is a 67-year-old white male who is brought into the ED via wheelchair accompanied by his daughter requesting suture removal. Patient and daughter reports approximately 10 days ago he fell and sustained a laceration to the lateral aspect of the right humerus and the lateral aspect of the left tibia/fibula. These wounds were sutured and he was discharged to home. Patient and daughter are slightly concerned about the laceration on the right humerus because it is still minimally bleeding but they have not seen any signs of infection. He is not having any pain in relationship to this laceration. They report on the left lower leg laceration that has been healing well and once again he has not been having any pain and they have not seen any signs of infection. PHYSICAL EXAM: Vital Signs: Date Time Temp Pulse Resp B/P (MAP) Pulse Ox O2 Delivery O2 Flow Rate FiO2 08/09/17 12:17 82 20 127/72 95 08/09/17 11:21 36.8 86 20 120/79 94 Room Air General: 67-year-old white male in no acute distress, nontoxic-appearing, afebrile and hemodynamically stable. Skin: Warm dry and pink. Right Upper Arm: Shows a laceration that is in the process of healing. On the bandage to cover the wound there is a small amount of blood but when the bandages removing there is no active bleeding. The wound is slough is slightly elevated and there appears to be a possible hematoma under the laceration where the bleeding is coming from. There was no active bleeding when I manipulated the wound. The wound edges were able to be slightly distracted with tension. There was no signs of infection of the wound. Left Lower Leg: Shows a laceration that is clean dry and intact. There is no active bleeding. There does not appear to be any hematoma under the wound. The wound edges are clear and there are no signs of infection. ED COURSE: Patient is assessed as noted above. Patient's medication list was reviewed. 9 sutures were removed from the patient's left lower leg laceration without any difficulty and there was no separation of the wound edges. A clean bacitracin dressing was applied to the patient's right upper arm laceration and pressure was placed on the wound with an [place] bandage. Patient and daughter were educated about today's findings and instructed on his treatment plan; they verbalized understanding and agreement with this plan. DISPOSITION: Patient discharged home in stable condition. CLINICAL IMPRESSION: Suture removal; Well healing laceration on the left lower leg. Wound check of the right upper extremity laceration. PLAN: Patient and daughter were continued to perform wound care and signs of infection as previously discussed. Patient and daughter were encouraged to keep the [place] bandage on the upper arm to keep pressure on the wound for bleeding but also for healing. Patient and daughter were encouraged to follow-up with his PCP or return to the ED for any signs of infection and/or suture removal in 2-3 days of his right upper arm.
== END 2017-08-09 12:18 | disposition home or self-care (01) ==
LOC: C.EDB 11:17 → C.EDD 12:18
DX: S41.111D Laceration without foreign body of right upper arm, subsequent encounter (principal); S81.811D Laceration without foreign body, right lower leg, subsequent encounter; X58.XXXD Exposure to other specified factors, subsequent encounter

== ENCOUNTER → 2017-09-15 | Outpatient (CLI) | payer OTHER ==
--- NOTE | 2017-09-15 18:09 | DIAGNOSTIC IMAGING REPORT ---
CT SCAN OF THE CHEST WITHOUT IV CONTRAST CLINICAL HISTORY: Pulmonary nodule. COMPARISON STUDY: Chest x-ray dated 07/29/2017. TECHNIQUE: CT scan of the thorax was performed from the thoracic inlet to the upper abdomen. Images are reviewed in the axial, sagittal, and coronal planes. IV contrast was not administered for this examination as per the front clinician. A dose lowering technique was utilized adhering to the principles of ALARA. The examination is degraded by streak artifact from the patient's arms which could not be elevated above the chest. CT DOSE: 540.36 mGy.cm FINDINGS: Thyroid: Imaged portions of the thyroid gland are normal in size and attenuation. A calcification containing nodule in the right lobe measures up to 10 mm. Thoracic aorta: The thoracic aorta is normal in caliber and demonstrates standard 3-vessel arch anatomy. Heart: The heart is normal in size and without pericardial effusion. The pulmonary trunk is normal in caliber. Lungs and pleural spaces: Mild paraseptal emphysematous change is seen at the apices. There is no airspace consolidation or pleural effusion. The trachea and central airways are clear. There are scattered calcified granulomas. A 5 mm left apical nodule is seen on image #51. No additional pulmonary lesion is identified. Mediastinum: There is no mediastinal lymphadenopathy. There are small calcified mediastinal nodes. Aimee: Not well assessed without IV contrast. There are small calcified hilar nodes. Axillae: There is no axillary lymphadenopathy. Upper abdomen: There is a tiny hiatal hernia. Small calcified granulomas are noted in the spleen. Partially visualized upper abdominal viscera is otherwise within normal limits. Skeletal structures: The skeletal structures are osteopenic. Degenerative change and hyperkyphosis are noted in the thoracic spine. There is a healed left lateral ninth rib fracture. Sclerotic change is seen in the left lateral seventh rib fracture, and also likely represents a healing fracture. No lytic or blastic bony lesions are seen. Fusion hardware is noted in the lower cervical spine. IMPRESSION: 1. Mild paraseptal emphysematous change is seen at the apices. 2. There is a 5 mm left apical pulmonary nodule. This is pathologically indeterminant and should be followed as per the Fleischner criteria. 3. No additional pulmonary lesion is identified. 4. There is no airspace consolidation or pleural effusion. 5. Sclerotic change in the left lateral seventh rib likely represents a healing/chronic rib fracture. An additional chronic left lateral ninth rib fracture is noted. Clinical correlation will be required. 6. There is a 10 mm nodule in the right lobe of the thyroid gland. Follow-up with thyroid ultrasound is recommended. 7. Additional findings as above. Electronically signed by: Ulysses Fontaine M.D. 09/15/2017 6:08 PM Dictated Date/Time: 09/15/2017 5:48 PM
== END | disposition home or self-care (01) ==
LOC: C.CTS 15:59
PROVIDERS: ATTEND Physician Assistant
DX: R91.1 Solitary pulmonary nodule (principal); E04.1 Nontoxic single thyroid nodule

== ENCOUNTER → 2017-11-22 | Outpatient (CLI) | payer OTHER ==
[~2017-11-22] MED LIST changes: -B-COTAB18 PO; -CLB/200 PO; -COEN1CAP28 PO; -FERR1TAB13 PO; -GLUC10007 PO; -KFL500 PO; +LINE600T5 PO; -MAGN400C2 PO; -MULT-506 PO; -OMEG10007 PO; -VITATAB11 PO; -tumeric PO
[2017-11-22 17:56] LABS: BASO % 0.3 %; BASO ABS # 0.03 K/uL (0-0.2); EOS % 2.1 %; EOS ABS # 0.22 K/uL (0-0.5); HEMATOCRIT 36.3 % (42-52); HEMOGLOBIN 11.9 g/dL (14.0-18.0); IG# 0.03 K/uL (0.00-0.02); LYMPH % 9.7 %; LYMPH ABS # 1.03 K/uL (1.2-3.4); MEAN CORPUSCULAR HEMOGLOBIN 26.6 pg (25-34); MEAN CORPUSCULAR HGB CONC 32.8 g/dl (32-36); MEAN PLATELET VOLUME 11.6 fL (7.4-10.4); MONO % 6.8 %; MONO ABS # 0.72 K/uL (0.11-0.59); NEUT % 80.8 %; NEUT ABS # 8.61 K/uL (1.4-6.5); PLATELET COUNT 206 K/uL (130-400); RED CELL DISTRIBUTION WIDTH CV 16.4 % (11.5-14.5); RED CELL DISTRIBUTION WIDTH SD 48.7 fL (36.4-46.3); WHITE BLOOD COUNT 10.64 K/uL (4.8-10.8)
--- NOTE | 2017-11-22 18:09 | DIAGNOSTIC IMAGING REPORT ---
CHEST 2 VIEWS ROUTINE CLINICAL HISTORY: WEAKNESS, DRY COUGH, HIGH TEMP, SOB dyspnea COMPARISON STUDY: 07/29/2017 FINDINGS: The bones soft tissues and hemidiaphragms are normal. The cardiomediastinal silhouette is normal. The lungs are clear. The pulmonary vasculature is normal. IMPRESSION: Negative chest. The above report was generated using voice recognition software. It may contain grammatical, syntax or spelling errors. Electronically signed by: Zachary Eli M.D. 11/22/2017 6:08 PM Dictated Date/Time: 11/22/2017 6:08 PM
[2017-11-22 18:16] LABS: BLOOD UREA NITROGEN 17 mg/dl (7-18); CALCIUM 8.6 mg/dl (8.5-10.1); CARBON DIOXIDE 27 mmol/L (21-32); CREATININE 1.03 mg/dl (0.60-1.40); GLUCOSE 126 mg/dl (70-99); POTASSIUM 3.8 mmol/L (3.5-5.1); SODIUM 133 mmol/L (136-145)
== END | disposition home or self-care (01) ==
LOC: C.RAD 17:25
PROVIDERS: ATTEND Nurse Practitioner Family
DX: R53.1 Weakness (principal); R05 Cough; R50.9 Fever, unspecified; R06.02 Shortness of breath; E11.42 Type 2 diabetes mellitus with diabetic polyneuropathy; R26.81 Unsteadiness on feet; R32 Unspecified urinary incontinence